=== PATIENT | male | born 1935 | race Hispanic/Latino ===

== ENCOUNTER 2016-11-08 00:37 | Emergency (ER) | payer BC, MEDICARE ==
[2016-11-08 00:39] VITALS: BMI 30.7
[2016-11-08 00:43] VITALS: TEMP 98.3
--- NOTE | 2016-11-08 01:25 | ED PDOC ---
Arrival/HPI - General Historian: Patient <Fozia Rincon - Last Filed: 11/08/16 03:49> <Darrick Chávez - Last Filed: 11/08/16 06:57> - General Chief Complaint: Dizziness/Lightheaded Time Seen by Provider: 11/08/16 00:44 - History of Present Illness Narrative History of Present Illness (Text): 11/08/16 01:15 81 M with PMHx of HTN, CAD with 2 stents, Hypercholesterolemia presented to [facility] ED with complaints of dizziness. Pt states that he had a massage by a chiropractor yesterday evening that was rather harsh that left him with a stiff neck. Pt noted slight dizziness this morning, slight headache and noted seeing floaters, took his BP which was 170s/80s however went to 128/72 after taking his anti-htn medications. Pt noted that he has stomach ache today also that began in the morning that kept him from eating much throughout the day. Pt was seen and examined at bedside. He continues to feel dizziness only upon change in position, however denies any other complaints at this time. Denies any focal deficits or speech changes. He denied fever, chills, sob, cough, chest pains, palpitations, abdominal pains, n/v/d/c or urinary symptoms. PMHx: As above PSHx: denies SHx: Lives in [place] with , denied tobacco, etoh, or drug abuse Allergies: Plavix Meds: As per OCT PMD: Dr. Rosales Cyberathlete: Dr. Escalera (Fozia Rincon) Past Medical History - Infectious Disease Hx of Infectious Diseases: None - Tetanus Immunization Tetanus Immunization: Unknown - Cardiac Hx Hypertension: Yes Hx Pacemaker: No - Neurological Hx Paralysis: No - Hematological/Oncological Hx Blood Transfusions: No Hx Blood Transfusion Reaction: No - Musculoskeletal/Rheumatological Hx Musculoskeletal Disorders: No - Gastrointestinal Hx Gastroesophageal Reflux: Yes - Psychiatric Hx Depression: No Hx Emotional Abuse: No Hx Physical Abuse: No Hx Substance Use: No - Surgical History Hx Cardiac Catheterization: Yes (1 stent) - Anesthesia Hx Anesthesia: Yes Hx Anesthesia Reactions: Yes (DIFFICULT INTUBATION) Hx Malignant Hyperthermia: No - Suicidal Assessment Feels Threatened In Home Enviroment: No <Fozia Rincon - Last Filed: 11/08/16 03:49> Family/Social History Family/Social History: No Known Family HX Smoking Status: Unknown If Ever Smoked Hx Alcohol Use: No Hx Substance Use: No Hx Substance Use Treatment: No <Fozia Rincon - Last Filed: 11/08/16 03:49> Family/Social History: Unknown Family HX <Jack Chávezo Karol - Last Filed: 11/08/16 06:57> Allergies/Home Meds <Fozia Rincon - Last Filed: 11/08/16 03:49> <Jack Chávezo Karol - Last Filed: 11/08/16 06:57> Allergies/Adverse Reactions: Allergies clopidogrel bisulfate [From Plavix] Allergy (Verified 11/08/16 00:40) REDNESS Home Medications: Home Meds Medication Instructions Recorded Confirmed Amlodipine Besylate 5 mg PO DAILY 07/23/12 11/08/16 Aspirin 81 mg PO DAILY 07/23/12 11/08/16 Lisinopril 20 mg PO DAILY 07/23/12 11/08/16 Metoprolol Tartrate 50 mg PO BID 07/23/12 11/08/16 Rosuvastatin Calcium [Crestor] 10 mg PO DAILY 07/23/12 11/08/16 Alprazolam [Xanax] 0.5 mg PO DAILY 10/28/13 11/08/16 Esomeprazole Magnesium [Nexium] 40 mg PO DAILY 10/28/13 11/08/16 Review of Systems - Physician Review All systems were reviewed & negative as marked: Yes - Review of Systems Neurological: Dizziness <Fozia Rincon - Last Filed: 11/08/16 03:49> - Physician Review All systems were reviewed & negative as marked: Yes <Jack Chávezo Karol - Last Filed: 11/08/16 06:57> Physical Exam Temperature: Afebrile Blood Pressure: Hypertensive Pulse: Regular Respiratory Rate: Normal Appearance: Positive for: Well-Appearing, Non-Toxic, Comfortable Pain Distress: None Mental Status: Positive for: Alert and Oriented X 3 - Systems Exam Head: Present: Atraumatic, Normocephalic Pupils: Present: PERRL Extroacular Muscles: Present: EOMI Conjunctiva: Present: Normal Mouth: Present: Dry Pharnyx: Present: Normal. No: ERYTHEMA Neck: Present: Normal Range of Motion Respiratory/Chest: Present: Clear to Auscultation, Good Air Exchange. No: Respiratory Distress, Accessory Muscle Use Cardiovascular: Present: Regular Rate and Rhythm, Normal S1, S2. No: Murmurs Abdomen: Present: Normal Bowel Sounds. No: Tenderness, Distention, Peritoneal Signs Upper Extremity: Present: Normal Inspection. No: Cyanosis, Edema Lower Extremity: Present: Normal Inspection. No: Edema Neurological: Present: GCS=15, CN II-XII Intact, Speech Normal Skin: Present: Warm, Dry, Normal Color. No: Rashes Psychiatric: Present: Alert, Oriented x 3, Normal Insight, Normal Concentration <Fozia Rincon - Last Filed: 11/08/16 03:49> Vital Signs Temp Pulse Resp BP Pulse Ox 11/08/16 05:18 90 16 160/76 H 96 11/08/16 00:41 98.3 F 85 14 180/87 H 98 Medical Decision Making - EKG Interpretation Comparison: Similar to previous EKG <Fozia Rincon - Last Filed: 11/08/16 03:49> - RAD Interpretation University Teacher: Radiologist - EKG Interpretation Interpreted by ED Physician: Yes Type: 12 lead EKG <Darrick Chávez - Last Filed: 11/08/16 06:57> ED Course and Treatment: 11/08/16 01:27 81 M with PMHx of HTN, CAD s/p 2 stents, HLD presented to [facility] ED with complaints of dizziness and mild headache likely benign positional vertigo. - CTH to r/o acute intracranial path - EKG - CBC/CMP - Orthostatics - Meclizine for dizziness - Monitor BP 11/08/16 01:46 (Fozia Rincon) 11/08/16 04:26 In agreement with resident note, which includes further HPI details. Patient was seen and evaluated with resident, came up with plan and treatment together. Impression: 81 year old male complaining of dizziness s/p chiropractic work on neck. Neuro exam normal. Dizziness reproduced when sitting and turning head to right. Rule out benign positional vertigo; less likely TIA/CVA. Plan: --CT Head --EKG --Labs --Meclizine, Maalox, IVF -- Reassess and disposition Prior Visits: Notes and results from previous visits were reviewed. Progress Notes: On reevaluation, prior to discharge and after tx with Meclizine patient felt much better. He is no longer having dizziness. He stands up and doesn't feel dizzy and is able to walk to the bathroom without ataxia. Neuro exam normal. No weakness or numbness (KobedaveyDarrick L) - Lab Interpretations Lab Results: 11/08/16 01:40 11/08/16 01:40 Lab Results 11/08/16 01:40: WBC 11.4 H, RBC 4.84, Hgb 14.6, Hct 43.7, MCV 90.3, MCH 30.2, MCHC 33.4, RDW 13.1, Plt Count 222, MPV 11.3 H, Gran % 55.0, Lymph % (Auto) 34.5 , [place] % (Auto) 9.1 H, Eos % (Auto) 1.2 L, Baso % (Auto) 0.2, Gran # 6.28, Lymph # 3.9 H, [place] # 1.0 H, Eos # 0.1, Baso # 0.02, Sodium 139, Potassium 4.6, Chloride 101, Carbon Dioxide 31, Anion Gap 12, BUN 12, Creatinine 0.8, Est GFR ( Amer) > 60, Est GFR (Non-Af Amer) > 60, Random Glucose 110, Calcium 9.1 , Total Bilirubin 0.6, AST 28, ALT 29, Alkaline Phosphatase 54, Total Protein 7.1, Albumin 3.9, Globulin 3.2, Albumin/Globulin Ratio 1.2 - RAD Interpretation Narrative RAD Interpretations (Text): 11/08/16 05:50 EXAM: CT Head With Intravenous Contrast Dictated and Authenticated by: Kalen Haywood MD FINDINGS: Brain: Mild atrophy. No intracranial hemorrhage. No mass. Chronic lacunar infarct RIGHT thalamus. Few scattered foci of decreased attenuation within periventricular/ subcortical white matter. No definite edema. Ventricles: No hydrocephalus. Bones/joints: No acute fracture. Soft tissues: Unremarkable. Vasculature: Atherosclerotic disease of intracranial arteries. Sinuses: RIGHT maxillary retention cyst. Scattered minimal mucosal thickening. Mastoid air cells: Postsurgical changes of RIGHT mastoid with minimal partial opacification. Orbits: Unremarkable as visualized. IMPRESSION: 1. Nonspecific white matter changes. Acute infarction may be CT occult within first 24 hours. If a focal deficit persists, consider followup CT or MRI for further evaluation. 2. Incidental/non-acute findings are described above. (Darrick Chávez) Radiology Orders: 11/08/16 01:08 HEAD W/CONTRAST [CT] Stat - EKG Interpretation EKG Interpretation (Text): 11/08/16 02:21 EKG: Ordered, reviewed, and independently interpreted the EKG. Rate : 86 BPM Rhythm : NSR Interpretation : 1 AVB; incomplete RBBB Comparison : No change from previous on 10/28/16 (Darrick Chávez) - Medication Orders Current Medication Orders: Discontinued Medications Al Hydrox/Mg Hydrox/Simethicone (Maalox Plus 30 Ml) 30 ml PO ONCE ONE Stop: 11/08/16 04:23 Last Admin: 11/08/16 04:38 Dose: 30 ML Sodium Chloride (Sodium Chloride 0.9%) 500 mls @ 999 mls/hr IV .Q31M STA Stop: 11/08/16 02:54 Last Admin: 11/08/16 03:36 Dose: 999 MLS/HR eMAR Start Stop Document 11/08/16 03:36 GMI (Rec: 11/08/16 03:36 [id number] Intravenous Solution Start Date 11/08/16 Start Time 03:36 Meclizine HCl (Antivert) 25 mg PO STAT STA Stop: 11/08/16 02:25 Last Admin: 11/08/16 03:36 Dose: 25 MG NIHSS Scale ([place]) Time Performed: 02:20 - How Severe is the Stoke Baseline Level of Consciousness: 0=Alert LOC to Questions: 0=Both comments correct LOC to commands: 0=Obeys both correctly Best Gaze: 0=Normal Visual: 0=No visual loss Facial: 0=Normal Motor Arm - Left: 0=No drift Motor Arm - Right: 0=No drift Motor Leg - Left: 0=No drift Motor Leg - Right: 0=No drift Limb Ataxia: 0=Absent Sensory: 0=Normal Best Language: 0=No aphasia Dysarthia: 0=Normal articulation Extinction & Inattention (Neglect): 0=Normal, no object Score: 0 Risk Level: No Stroke Risk <Darrick Chávez - Last Filed: 11/08/16 06:57> <Sergey,Manit - Last Filed: 11/08/16 03:49> - Scribe Statement The provider has reviewed the documentation as recorded by the Scribe <Darrick Chávez - Last Filed: 11/08/16 06:57> - Scribe Statement Mary Schmidt Provider Scribe Attestation: All medical record entries made by the Scribe were at my direction and personally dictated by me. I have reviewed the chart and agree that the record accurately reflects my personal performance of the history, physical exam, medical decision making, and the department course for this patient. I have also personally directed, reviewed, and agree with the discharge instructions and disposition. (Darrick Chávez) Disposition/Present on Arrival - Present on Arrival Any Indicators Present on Arrival: No History of DVT/PE: No History of Uncontrolled Diabetes: No Urinary Catheter: No History of Decub. Ulcer: No History Surgical Site Infection Following: None - Disposition Have Diagnosis and Disposition been Completed?: Yes Disposition Time: 01:00 <Fozia Rincon - Last Filed: 11/08/16 03:49> - Present on Arrival Any Indicators Present on Arrival: No - Disposition Have Diagnosis and Disposition been Completed?: Yes Disposition Time: 05:32 Patient Plan: Discharge <Darrick Chávez - Last Filed: 11/08/16 06:57> - Disposition Diagnosis: Benign positional vertigo Disposition: HOME/ ROUTINE Condition: IMPROVED Discharge Instructions (ExitCare): Dizziness (ED) Additional Instructions: Mr. Patrick, thank you for letting us take care of you today. Your provider was Dr. Chávez. You were treated for Dizziness. The emergency medical care you received today was directed at your acute symptoms. If you were prescribed any medication, please fill it and take as directed. It may take several days for your symptoms to resolve. Return to the Emergency Department if your symptoms worsen, do not improve, or if you have any other problems. Please contact your doctor or call one of the physicians/clinics you have been referred to that are listed on the Patient Visit Information form that is included in your discharge packet. Bring any paperwork you were given at discharge with you along with any medications you are taking to your follow up visit. Our treatment cannot replace ongoing medical care by a primary care provider (PCP) outside of the emergency department. Thank you for allowing the [facility] team to be part of your care today. If you had an X-Ray or CT scan: A Radiologist will review the ED reading if any change in treatment is needed we will contact you. If you had a blood, urine, or wound culture: It will take several days for the results, if any change in treatment is needed we will contact you. If you had an STI test: It will take 48 hours for the results. Please call after 1 week if you have not heard back. Prescriptions: Meclizine [Meclizine*] 25 mg PO Q6 PRN #30 tab PRN Reason: Dizziness Referrals: Kelsea Walker MD [Primary Care Provider] - Follow up with primary Forms: WORK NOTE
--- NOTE | 2016-11-08 01:36 | CT ---
EXAM: CT Head With Intravenous Contrast. CLINICAL HISTORY: 81 years old, male; Signs and symptoms; Dizziness; Additional info: R/O stroke, study done w/o contrast. TECHNIQUE: Axial computed tomography images of the head/brain with intravenous contrast. This CT exam was performed using one or more of the following dose reduction techniques: automated exposure control, adjustment of the mA and/or kV according to patient size, and/or use of iterative reconstruction technique. CONTRAST: 0 mL of w/o administered intravenously. COMPARISON: No relevant prior studies available. FINDINGS: Brain: Mild atrophy. No intracranial hemorrhage. No mass. Chronic lacunar infarct RIGHT thalamus. Few scattered foci of decreased attenuation within periventricular/subcortical white matter. No definite edema. Ventricles: No hydrocephalus. Bones/joints: No acute fracture. Soft tissues: Unremarkable. Vasculature: Atherosclerotic disease of intracranial arteries. Sinuses: RIGHT maxillary retention cyst. Scattered minimal mucosal thickening. Mastoid air cells: Postsurgical changes of RIGHT mastoid with minimal partial opacification. Orbits: Unremarkable as visualized. IMPRESSION: 1. Nonspecific white matter changes. Acute infarction may be CT occult within first 24 hours. If a focal deficit persists, consider followup CT or MRI for further evaluation. 2. Incidental/non-acute findings are described above.
[2016-11-08 01:48] LABS: ADD MANUAL DIFF? NO
[2016-11-08 02:16] LABS: BASO # 0.02 K/mm3 (0.0-2.0); BASO % 0.2 % (0.0-3.0); EOS # 0.1 (0.0-0.7); EOS % 1.2 % (1.5-5.0); GRAN # 6.28 (1.4-6.5); HEMATOCRIT 43.7 % (42.0-52.0); LYMPH # 3.9 (1.2-3.4); LYMPH % 34.5 % (22.0-35.0); MEAN CELL VOLUME 90.3 fL (80.0-105.0); MEAN CORPUSCULAR HEMOGLOBIN 30.2 pg (25.0-35.0); MEAN CORPUSCULAR HGB CONC 33.4 g/dl (31.0-37.0); MEAN PLATELET VOLUME 11.3 fl (7.0-11.0); MONO % 9.1 % (1.0-6.0); PLATELET COUNT 222 10^3/uL (120.0-450.0); RED CELL DISTRIBUTION WIDTH 13.1 % (11.5-14.5); WHITE BLOOD COUNT 11.4 10^3/ul (4.5-11.0)
[2016-11-08] MEDS ORDERED: Sodium Chloride 0.9% 500 ML IV STA (02:24)
[2016-11-08] MEDS ORDERED: Alum-Mag Hydrox-Simethicone Susp (30 mL) PO ONE (04:22)
[2016-11-08 04:51] LABS: ALB/GLOB RATIO 1.2 (1.1-1.8); ALKALINE PHOSPHATASE 54 U/L (38-133); ALT/SGPT 29 U/L (7-56); AST/SGOT 28 U/L (15-59); BILIRUBIN,TOTAL 0.6 mg/dL (0.2-1.3); BLOOD UREA NITROGEN 12 mg/dL (7-21); CALCIUM 9.1 mg/dL (8.4-10.5); CARBON DIOXIDE 31 mmol/L (21-33); CHLORIDE 101 mmol/L (95-110); GFR AFRICAN-AMERICAN > 60; GLUCOSE,RANDOM 110 mg/dL (70-110); POTASSIUM 4.6 mmol/L (3.6-5.0); SODIUM 139 mmol/L (132-148); TOTAL PROTEIN 7.1 g/dL (5.8-8.3)
[2016-11-08 05:19] VITALS: BP 160/76; PULSE 90; RESP 16; O2SAT 96
--- NOTE | 2016-11-08 10:13 | CARD ---
APPROVED REPORT EKG Measurement Heart [id number] <Conclusion> Sinus rhythm with 1st degree AV block Possible Left atrial enlargement Incomplete right bundle branch block Nonspecific ST and T wave abnormality Prolonged QT
== END 2016-11-08 05:32 | disposition home or self-care (01) ==
LOC: ED 00:37
DX: H81.10 Benign paroxysmal vertigo, unspecified ear (principal); I10 Essential (primary) hypertension; E78.00 Pure hypercholesterolemia, unspecified; I25.10 Atherosclerotic heart disease of native coronary artery without angina pectoris; Z95.5 Presence of coronary angioplasty implant and graft
CPT/HCPCS: 70460; 80053; 85025; 93005; 99285; J7040

== ENCOUNTER 2017-12-07 04:04 | Emergency (ER) | payer BC, MEDICARE ==
[2017-12-07 04:08] VITALS: BMI 30.9
--- NOTE | 2017-12-07 04:31 | ED PDOC ---
Arrival/HPI - General Chief Complaint: Chest Pain Time Seen by Provider: 12/07/17 04:16 Historian: Patient - History of Present Illness Narrative History of Present Illness (Text): you were treated in the ED today for hx of CAD with stents, and have had intermittent left sided chest pain and otherwise without any nausea/vomiting/ headache/dizziness/difficulty breathing/abdomen pain/numbness/tingling/loss of limb function/pain with urination/recent travel/prior blood clots/prior cancer. 12/07/17 04:27 Time/Duration: Other (3 days) Symptom Onset: Gradual Symptom Course: Intermittent Quality: Aching, Stabbing Activities at Onset: Rest Context: Sitting Past Medical History - Provider Review Nursing Documentation Reviewed: Yes - Travel History Have you recently traveled outside [place] w/in the past 3 mons?: No - Infectious Disease Hx of Infectious Diseases: None - Tetanus Immunization Tetanus Immunization: Unknown - Cardiac Hx Hypertension: Yes Hx Pacemaker: No - Neurological Hx Paralysis: No - HEENT Hx HEENT Disorder: No - Renal Hx Renal Disorder: No - Endocrine/Metabolic Hx Endocrine Disorders: No - Hematological/Oncological Hx Blood Transfusions: No Hx Blood Transfusion Reaction: No - Musculoskeletal/Rheumatological Hx Musculoskeletal Disorders: No - Gastrointestinal Hx Gastroesophageal Reflux: Yes - Psychiatric Hx Depression: No Hx Emotional Abuse: No Hx Physical Abuse: No Hx Substance Use: No - Surgical History Hx Cardiac Catheterization: Yes (1 stent) - Anesthesia Hx Anesthesia: Yes Hx Anesthesia Reactions: Yes (DIFFICULT INTUBATION) Hx Malignant Hyperthermia: No - Suicidal Assessment Feels Threatened In Home Enviroment: No Family/Social History - Physician Review Nursing Documentation Reviewed: Yes Family/Social History: No Known Family HX Smoking Status: Unknown If Ever Smoked Hx Alcohol Use: No Hx Substance Use: No Hx Substance Use Treatment: No Allergies/Home Meds Allergies/Adverse Reactions: Allergies clopidogrel bisulfate [From Plavix] Allergy (Verified 12/07/17 04:08) REDNESS Home Medications: Home Meds Medication Instructions Recorded Confirmed Amlodipine Besylate 5 mg PO DAILY 07/23/12 12/07/17 Aspirin 81 mg PO DAILY 07/23/12 12/07/17 Lisinopril 20 mg PO DAILY 07/23/12 12/07/17 Metoprolol Tartrate 50 mg PO BID 07/23/12 12/07/17 Rosuvastatin Calcium [Crestor] 10 mg PO DAILY 07/23/12 12/07/17 Alprazolam [Xanax] 0.5 mg PO DAILY 10/28/13 12/07/17 Esomeprazole Magnesium [Nexium] 40 mg PO DAILY 10/28/13 12/07/17 Review of Systems - Review of Systems Constitutional: Normal Eyes: Normal ENT: Normal Respiratory: Normal Cardiovascular: Chest Pain Gastrointestinal: Normal Genitourinary Male: Normal Musculoskeletal: Normal Skin: Normal Neurological: Normal Endocrine: Normal Hemo/Lymphatic: Normal Psychiatric: Normal Physical Exam Vital Signs Reviewed: Yes Vital Signs Temp Pulse Resp BP Pulse Ox 12/07/17 07:30 98 F 80 18 162/77 H 96 12/07/17 06:52 77 18 140/68 96 12/07/17 05:12 67 18 147/74 95 12/07/17 04:05 98.7 F 80 16 173/77 H 96 Temperature: Afebrile Blood Pressure: Hypertensive Pulse: Regular Respiratory Rate: Normal Appearance: Positive for: Well-Appearing, Non-Toxic, Comfortable Pain Distress: None Mental Status: Positive for: Alert and Oriented X 3 - Systems Exam Head: Present: Atraumatic, Normocephalic Pupils: Present: PERRL Extroacular Muscles: Present: EOMI Conjunctiva: Present: Normal Ears: Present: Normal Mouth: Present: Moist Mucous Membranes Pharnyx: Present: Normal Nose (External): Present: Atraumatic Medical Decision Making ED Course and Treatment: you were treated in the ED today for hx of CAD with stents, and have had intermittent left sided chest pain and otherwise without any nausea/vomiting/ headache/dizziness/difficulty breathing/abdomen pain/numbness/tingling/loss of limb function/pain with urination/recent travel/prior blood clots/prior cancer. You were otherwise breathing easily, pink moist lips, talking easily, good strength/sensation, alert/oriented, walking easily, clear lungs, no abdomen tenderness, no fever temp 98.7, stable heart rate 80, stable breathing rate 16, excellent oxygen level 96% room air, elevated blood pressure 173/77 which we recommend repeat in 2-3 days primary care office to determine further treatment , you have blood tests no infection count 9, stable blood level hemoglobin 14/ platelets 218, stable chemistry, negative heart blood test, chest xray radiology widened mediastinum, ECG sinus rhythm, aspirin, mlanta, observation done in the ED with improvement. signed out to Dr. Syed to fu CTa and disposition. Reassessment Condition: Re-examined, Improved - Lab Interpretations Lab Results: 12/07/17 04:20 12/07/17 04:20 Lab Results 12/07/17 06:27: Urine Color Yellow, Urine Appearance Clear, Urine pH 7.0, Ur Specific [place] <= 1.005, Urine Protein Negative, Urine Glucose (UA) Negative, Urine Ketones Negative, Urine Blood Negative, Urine Nitrate Negative, Urine Bilirubin Negative, Urine Urobilinogen 0.2, Ur Leukocyte Esterase Negative 12/07/17 04:20: Sodium 141, Potassium 4.2, Chloride 99, Carbon Dioxide 30, Anion Gap 16, BUN 17, Creatinine 0.9, Est GFR ( Amer) > 60, Est GFR (Non- Af Amer) > 60, Random Glucose 110, Calcium 9.2, Magnesium 1.9, Total Bilirubin 0.3, AST 29, ALT 28, Alkaline Phosphatase 66, Lactate Dehydrogenase 370, Total Creatine Kinase 45, Troponin I < 0.01, Total Protein 7.3, Albumin 4.3, Globulin 3.0, Albumin/Globulin Ratio 1.4 12/07/17 04:20: PT 11.3, INR 0.98, APTT 29.2 12/07/17 04:20: WBC 9.8, RBC 4.69, Hgb 14.2, Hct 42.5, MCV 90.6, MCH 30.3, MCHC 33.4, RDW 13.2, Plt Count 218, MPV 10.9, Gran % 50.1, Lymph % (Auto) 39.7 H, [place] % (Auto) 7.7 H, Eos % (Auto) 2.3, Baso % (Auto) 0.2, Gran # 4.89, Lymph # ( Auto) 3.9 H, [place] # (Auto) 0.8 H, Eos # (Auto) 0.2, Baso # (Auto) 0.02 I have reviewed the lab results: Yes - RAD Interpretation Narrative RAD Interpretations (Text): 12/07/17 05:29 CXR reviewed by radiologist, shows: Limitations: Radiographic technique - mild. Lungs: No consolidation. Pleural space: No definite pleural effusion. No pneumothorax. Heart: Borderline cardiomegaly. Mediastinum: Apparent widened mediastinum. Apparent mild prominence of central pulmonary vasculature. Bones/joints: Chronic deformity of rib cage. No acute fracture. Tubes, lines and devices: Leads overlying chest. IMPRESSION: 1. Apparent widening mediastinum. Recommend CT. 2. Possible early pulmonary vascular congestion. Clinical correlation is needed. 3. Incidental/non-acute findings are described above. Radiology Orders: 12/07/17 04:26 CHEST PORTABLE [RAD] Stat 12/07/17 05:28 ANGIO CHEST PE PROTOCOL [CT] Stat Thermal Technician: Radiologist - EKG Interpretation Interpreted by ED Physician: Yes (SR, flipped t waves avr, avl, v1, ) Type: 12 lead EKG Comparison: Similar to previous EKG (11/08/16) - Medication Orders Current Medication Orders: Discontinued Medications Al Hydrox/Mg Hydrox/Simethicone (Maalox Plus 30 Ml) 30 ml PO STAT STA Stop: 12/07/17 05:24 Last Admin: 12/07/17 05:37 Dose: 30 ml Aspirin (Aspirin) 325 mg PO STAT STA Stop: 12/07/17 04:26 Last Admin: 12/07/17 04:29 Dose: 325 mg Sodium Chloride (Sodium Chloride 0.9%) 1,000 mls @ 100 mls/hr IV .Q10H NASRIN Last Admin: 12/07/17 05:37 Dose: 100 mls/hr eMAR Start Stop Document 12/07/17 05:37 RD (Rec: 12/07/17 05:37 RD [id number]) Intravenous Solution Start Date 12/07/17 Start Time 05:37 End Date 12/07/17 End time 07:45 Total Infusion Time 128 Disposition/Present on Arrival - Present on Arrival Any Indicators Present on Arrival: No History of DVT/PE: No History of Uncontrolled Diabetes: No Urinary Catheter: No History of Decub. Ulcer: No History Surgical Site Infection Following: None - Disposition Have Diagnosis and Disposition been Completed?: Yes Diagnosis: Chest pain, Left against medical advice Disposition: AGAINST MEDICAL ADVICE Disposition Time: 18:05 Patient Plan: Discharge Condition: STABLE Discharge Instructions (ExitCare): Leaving Against Medical Advice, Chest Pain ( ED) Additional Instructions: return to er with worsening symptoms or concerns. please follow up with your doctor/parcel post clerk. you are able to return to any er with any concern. Referrals: Kelsea Walker MD [Primary Care Provider] - Follow up with primary Forms: ModusP (German)
[2017-12-07 04:51] LABS: BASO # 0.02 K/mm3 (0.0-2.0); BASO % 0.2 % (0.0-3.0); EOS # 0.2 (0.0-0.7); EOS % 2.3 % (1.5-5.0); GRAN # 4.89 (1.4-6.5); GRAN % 50.1 % (50.0-68.0); HEMOGLOBIN 14.2 g/dL (14.0-18.0); LYMPH # 3.9 (1.2-3.4); LYMPH % 39.7 % (22.0-35.0); MEAN CELL VOLUME 90.6 fl (80.0-105.0); MEAN CORPUSCULAR HEMOGLOBIN 30.3 pg (25.0-35.0); MEAN CORPUSCULAR HGB CONC 33.4 g/dl (31.0-37.0); MEAN PLATELET VOLUME 10.9 fl (7.0-11.0); MONO # 0.8 (0.1-0.6); MONO % 7.7 % (1.0-6.0); RBC 4.69 10^6/uL (3.5-6.1); RED CELL DISTRIBUTION WIDTH 13.2 % (11.5-14.5); WHITE BLOOD COUNT 9.8 10^3/ul (4.5-11.0)
[2017-12-07 04:54] LABS: ALB/GLOB RATIO 1.4 (1.1-1.8); ALBUMIN 4.3 g/dL (3.0-4.8); ALT/SGPT 28 U/L (7-56); AST/SGOT 29 U/L (17-59); BLOOD UREA NITROGEN 17 mg/dL (7-21); CALCIUM 9.2 mg/dL (8.4-10.5); GFR AFRICAN-AMERICAN > 60; GFR NON-AFRICAN AMERICAN > 60
[2017-12-07 05:05] LABS: TROPONIN I < 0.01 ng/mL
[2017-12-07 05:06] LABS: PROTHROMBIN TIME 11.3 SECONDS (9.4-12.5)
[2017-12-07 05:07] LABS: INR 0.98 (0.93-1.08); PARTIAL THROMBOPLASTIN TIME 29.2 Seconds (25.1-36.5)
[2017-12-07 05:13] VITALS: RESP 18
[2017-12-07] MEDS ORDERED: Alum-Mag Hydrox-Simethicone Susp (30 mL) PO STA (05:23)
--- NOTE | 2017-12-07 05:25 | RAD ---
EXAM: XR Chest, 1 View CLINICAL HISTORY: 82 years old, male; Pain; Chest pain; Additional info: 82yom, chest pain TECHNIQUE: Frontal view of the chest. COMPARISON: No relevant prior studies available. FINDINGS: Limitations: Radiographic technique - mild. Lungs: No consolidation. Pleural space: No definite pleural effusion. No pneumothorax. Heart: Borderline cardiomegaly. Mediastinum: Apparent widened mediastinum. Apparent mild prominence of central pulmonary vasculature. Bones/joints: Chronic deformity of rib cage. No acute fracture. Tubes, lines and devices: Leads overlying chest. IMPRESSION: 1. Apparent widening mediastinum. Recommend CT. 2. Possible early pulmonary vascular congestion. Clinical correlation is needed. 3. Incidental/non-acute findings are described above.
[2017-12-07] MEDS ORDERED: Sodium Chloride 0.9% 1,000 ML IV SCH (05:30)
[2017-12-07] MEDS ORDERED: Iodixanol 320 MG/ML 100 ML BOTTLE IV ONE (05:31)
[2017-12-07 06:36] LABS: URINE BILIRUBIN NEGATIVE (NEGATIVE); URINE BLOOD NEGATIVE (NEGATIVE); URINE GLUCOSE (UA) NEGATIVE (NEGATIVE); URINE LEUKOCYTE ESTERASE NEGATIVE Leu/uL (NEGATIVE); URINE PROTEIN NEGATIVE mg/dL (<30 mg/dL); URINE UROBILINOGEN 0.2 E.U./dL (<1 E.U./dL)
[2017-12-07 06:37] LABS: URINE APPEARANCE CLEAR (CLEAR); URINE COLOR YELLOW (YELLOW)
[2017-12-07 06:52] VITALS: O2SAT 96
--- NOTE | 2017-12-07 07:18 | ED PDOC ---
Physical Exam Vital Signs Temp Pulse Resp BP Pulse Ox 12/07/17 06:52 77 18 140/68 96 12/07/17 05:12 67 18 147/74 95 12/07/17 04:05 98.7 F 80 16 173/77 H 96 Medical Decision Making ED Course and Treatment: 12/07/17 07:00 Case signed out to me by Dr. Lambert. Patient is an 82 year old male whose PMH includes CAD with stents, who came in complaining of intermittent left sided chest pain. Currently pending CT chest. 12/07/17 07:25 CT Chest: FINDINGS: Pulmonary arteries: Unremarkable. No pulmonary embolism. Aorta: The aorta demonstrates moderate atherosclerotic calcification. No thoracic aortic aneurysm. Lungs: Streaky bibasilar opacities secondary to atelectasis or infiltrate. Pleural space: Unremarkable. No significant effusion. No pneumothorax. Heart: Coronary artery calcification. No significant pericardial effusion. No evidence of RV dysfunction. Bones/joints: No acute fracture. No dislocation. 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 Soft tissues: Unremarkable. Lymph nodes: Unremarkable. No enlarged lymph nodes. Kidneys and ureters: There is a simple cyst in the right kidney. IMPRESSION: No evidence of pulmonary embolism. Streaky bibasilar opacities secondary to atelectasis or infiltrate. 12/07/17 07:35 Leaving Against Medical Advice (AMA): The patient is choosing to leave against medical advice. I have personally explained to the patient that choosing to do so may result in permanent bodily harm or . I have discussed at great length that without further evaluation and monitoring there may be unforeseen circumstances and/or deterioration causing permanent bodily harm or as a result of their choice. The patient is alert, oriented, and shows the mental capacity to make clear decisions regarding the patients health care at this time. The patient continues to wish to leave against medical advice. In light of the patients decision to leave against medical advice, follow-up has been arranged and the patient is aware of the importance to following up as instructed. The patient has been advised that they should return to the emergency room immediately if they change their mind at any time, or if their condition begins to change or worsen in any way. 12/07/17 10:06 pt whth left sided cp. h/o of cad s/p stents, pt refuses admission. states will return with worsening. - Lab Interpretations Lab Results: 12/07/17 04:20 12/07/17 04:20 Lab Results 12/07/17 06:27: Urine Color Yellow, Urine Appearance Clear, Urine pH 7.0, Ur Specific [place] <= 1.005, Urine Protein Negative, Urine Glucose (UA) Negative, Urine Ketones Negative, Urine Blood Negative, Urine Nitrate Negative, Urine Bilirubin Negative, Urine Urobilinogen 0.2, Ur Leukocyte Esterase Negative 12/07/17 04:20: Sodium 141, Potassium 4.2, Chloride 99, Carbon Dioxide 30, Anion Gap 16, BUN 17, Creatinine 0.9, Est GFR ( Amer) > 60, Est GFR (Non- Af Amer) > 60, Random Glucose 110, Calcium 9.2, Magnesium 1.9, Total Bilirubin 0.3, AST 29, ALT 28, Alkaline Phosphatase 66, Lactate Dehydrogenase 370, Total Creatine Kinase 45, Troponin I < 0.01, Total Protein 7.3, Albumin 4.3, Globulin 3.0, Albumin/Globulin Ratio 1.4 12/07/17 04:20: PT 11.3, INR 0.98, APTT 29.2 12/07/17 04:20: WBC 9.8, RBC 4.69, Hgb 14.2, Hct 42.5, MCV 90.6, MCH 30.3, MCHC 33.4, RDW 13.2, Plt Count 218, MPV 10.9, Gran % 50.1, Lymph % (Auto) 39.7 H, [place] % (Auto) 7.7 H, Eos % (Auto) 2.3, Baso % (Auto) 0.2, Gran # 4.89, Lymph # ( Auto) 3.9 H, [place] # (Auto) 0.8 H, Eos # (Auto) 0.2, Baso # (Auto) 0.02 - RAD Interpretation Radiology Orders: 12/07/17 04:26 CHEST PORTABLE [RAD] Stat 12/07/17 05:28 ANGIO CHEST PE PROTOCOL [CT] Stat Colorer: Radiologist - Medication Orders Current Medication Orders: Sodium Chloride (Sodium Chloride 0.9%) 1,000 mls @ 100 mls/hr IV .Q10H NASRIN Last Admin: 12/07/17 05:37 Dose: 100 mls/hr eMAR Start Stop Document 12/07/17 05:37 RD (Rec: 12/07/17 05:37 RD [id number]) Intravenous Solution Start Date 12/07/17 Start Time 05:37 Discontinued Medications Al Hydrox/Mg Hydrox/Simethicone (Maalox Plus 30 Ml) 30 ml PO STAT STA Stop: 12/07/17 05:24 Last Admin: 12/07/17 05:37 Dose: 30 ml Aspirin (Aspirin) 325 mg PO STAT STA Stop: 12/07/17 04:26 Last Admin: 12/07/17 04:29 Dose: 325 mg - Scribe Statement The provider has reviewed the documentation as recorded by the Rubén Joe Provider Scribe Attestation: All medical record entries made by the Scribe were at my direction and personally dictated by me. I have reviewed the chart and agree that the record accurately reflects my personal performance of the history, physical exam, medical decision making, and the department course for this patient. I have also personally directed, reviewed, and agree with the discharge instructions and disposition. Disposition/Present on Arrival - Present on Arrival Any Indicators Present on Arrival: No History of DVT/PE: No History of Uncontrolled Diabetes: No Urinary Catheter: No History of Decub. Ulcer: No History Surgical Site Infection Following: None - Disposition Have Diagnosis and Disposition been Completed?: Yes Diagnosis: Chest pain, Left against medical advice Disposition: HOME/ ROUTINE Disposition Time: 07:00 Condition: STABLE Discharge Instructions (ExitCare): Leaving Against Medical Advice, Chest Pain ( ED) Additional Instructions: return to er with worsening symptoms or concerns. please follow up with your doctor/photo tech. you are able to return to any er with any concern. Referrals: Kelsea Walker MD [Primary Care Provider] - Follow up with primary Forms: [employer] (Guyanese)
--- NOTE | 2017-12-07 07:20 | CT ---
EXAM: CT Angiography Chest With Intravenous Contrast CLINICAL HISTORY: 82 years old, male; Pain; Chest pain; Additional info: 82yom, with widened mediastinum TECHNIQUE: Axial computed tomographic angiography images of the chest with intravenous contrast using pulmonary embolism protocol. All CT scans at this facility use one or more dose reduction techniques, viz.: automated exposure control; ma/kV adjustment per patient size (including targeted exams where dose is matched to indication; i.e. head); or iterative reconstruction technique. MIP reconstructed images were created and reviewed. Coronal and sagittal reformatted images were created and reviewed. CONTRAST: 96 mL of visi 320 administered intravenously. COMPARISON: DX - CHEST PORTABLE 2017-12-07 04:27 FINDINGS: Pulmonary arteries: Unremarkable. No pulmonary embolism. Aorta: The aorta demonstrates moderate atherosclerotic calcification. No thoracic aortic aneurysm. Lungs: Streaky bibasilar opacities secondary to atelectasis or infiltrate. Pleural space: Unremarkable. No significant effusion. No pneumothorax. Heart: Coronary artery calcification. No significant pericardial effusion. No evidence of RV dysfunction. Bones/joints: No acute fracture. No dislocation. 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 Soft tissues: Unremarkable. Lymph nodes: Unremarkable. No enlarged lymph nodes. Kidneys and ureters: There is a simple cyst in the right kidney. IMPRESSION: No evidence of pulmonary embolism. Streaky bibasilar opacities secondary to atelectasis or infiltrate.
[2017-12-07 08:08] VITALS: BP 162/77; PULSE 80; TEMP 98
--- NOTE | 2017-12-07 20:32 | CARD ---
APPROVED REPORT EKG Measurement Heart [id number] <Conclusion> Sinus rhythm with 1st degree AV block Incomplete right bundle branch block Nonspecific ST and T wave abnormality Prolonged QT Abnormal ECG
== END 2017-12-07 07:50 | disposition left against medical advice (07) ==
LOC: ED 04:04
DX: R07.9 Chest pain, unspecified (principal); I10 Essential (primary) hypertension; I25.10 Atherosclerotic heart disease of native coronary artery without angina pectoris
CPT/HCPCS: 71045; 71275; 80053; 81003; 82550; 83615; 83735; 84484; 85025; 85610; 85730; 87086; 93005; 96360; 96361; 99285; J7040; Q9967

== ENCOUNTER 2018-04-12 06:26 | Emergency (ER) | payer BC, MEDICARE ==
[2018-04-12 06:33] VITALS: BMI 29.9
[2018-04-12] MEDS ORDERED: Labetalol 5 mg/ml Inj 20ML IV STA (07:43)
[2018-04-12] MEDS ORDERED: Sodium Chloride 0.9% 1,000 ML IV STA (07:48)
--- NOTE | 2018-04-12 08:02 | ED PDOC ---
Arrival/HPI - History of Present Illness Time/Duration: < week Symptom Onset: Gradual Symptom Course: Intermittent Quality: Pressure Activities at Onset: Rest - General Chief Complaint: Abdominal Pain Time Seen by Provider: 04/12/18 07:07 - History of Present Illness Narrative History of Present Illness (Text): 04/12/18 07:49 Pt is an 82 year old male with PMHx HTN, CAD s/p stents who presents complaining of abdominal pain. Pt states that two days ago he went to his primary's office because he had been experiencing epigastric pressure and bloating and also noticed his blood pressure to be elevated. Pt was concerned this might be cardiac related due to his history, states EKG in office showed no acute findings and pt returned home. He has intermittent epigastric pain and bloating for two days, and has noticed his symptoms mostly resolved with Mylanta. He states that yesterday he was experiencing abdominal pain and and took his pressure which was in the 180s/100s, states he took Mylanta and the pain went away and his pressure also returned to normal (130s/80s-90s). He presented to ED this morning bc of worsening pain also stating that he has pain in both of his shoulders. The patient denies chest pain or any radiation to the back or jaw. His last BM was yesterday which was hard and dark, with no visible blood. Pt states he has not had an appetite and did not eat anything yesterday. He denies any nausea or vomiting. Pt denies dizziness, headache, fevers, fatigue, palpitations. Pt states that at present the pain has resolved. He has never smoked. (Galen Vinson) Past Medical History - Infectious Disease Hx of Infectious Diseases: None - Tetanus Immunization Tetanus Immunization: Unknown - Cardiac Hx Angina: No Hx Coronary Artery Disease: Yes (CAD s/p stents) Hx Hypertension: Yes Hx Pacemaker: No - Neurological Hx Paralysis: No - HEENT Hx HEENT Disorder: No - Renal Hx Renal Disorder: No - Endocrine/Metabolic Hx Endocrine Disorders: No - Hematological/Oncological Hx Blood Transfusions: No Hx Blood Transfusion Reaction: No - Musculoskeletal/Rheumatological Hx Musculoskeletal Disorders: No - Gastrointestinal Hx Gastroesophageal Reflux: Yes - Psychiatric Hx Depression: No Hx Emotional Abuse: No Hx Physical Abuse: No Hx Substance Use: No - Surgical History Hx Cardiac Catheterization: Yes (1 stent) - Anesthesia Hx Anesthesia: Yes Hx Anesthesia Reactions: Yes (DIFFICULT INTUBATION) Hx Malignant Hyperthermia: No - Suicidal Assessment Feels Threatened In Home Enviroment: No Family/Social History Family/Social History: [place] (+Father from [place] age 68) Smoking Status: Unknown If Ever Smoked Hx Alcohol Use: No Hx Substance Use: No Hx Substance Use Treatment: No Allergies/Home Meds Allergies/Adverse Reactions: Allergies clopidogrel bisulfate [From Plavix] Allergy (Verified 04/12/18 06:33) REDNESS Home Medications: Home Meds Medication Instructions Recorded Confirmed Amlodipine Besylate 5 mg PO DAILY 07/23/12 04/12/18 Aspirin 81 mg PO DAILY 07/23/12 04/12/18 Lisinopril 20 mg PO DAILY 07/23/12 04/12/18 Metoprolol Tartrate 50 mg PO BID 07/23/12 04/12/18 Rosuvastatin Calcium [Crestor] 10 mg PO DAILY 07/23/12 04/12/18 Alprazolam [Xanax] 0.5 mg PO DAILY 10/28/13 04/12/18 Esomeprazole Magnesium [Nexium] 40 mg PO DAILY 10/28/13 04/12/18 Review of Systems - Review of Systems Constitutional: Normal. absent: Fatigue, Fevers Eyes: Normal. absent: Vision Changes, Photophobia ENT: Normal. absent: Sore Throat, Rhinorrhea Respiratory: Normal. absent: SOB, Cough Cardiovascular: absent: Chest Pain, Palpitations Gastrointestinal: Abdominal Pain, Constipation, Appetite Changes (+decreased appetite past 24 hours). absent: Diarrhea, Nausea, Vomiting, Hematochezia, Hematemesis, Food Intolerance Genitourinary Male: Normal. absent: Dysuria, Frequency, Hematuria Musculoskeletal: Other (+b/l shoulder pain) Skin: Normal. absent: Rash, Pruritis Neurological: Normal. absent: Headache, Dizziness, Focal Weakness Physical Exam Temperature: Afebrile Blood Pressure: Hypertensive (+Labetolol not given 2/2 BP droppe) Pulse: Regular Respiratory Rate: Normal Appearance: Positive for: Well-Appearing, Non-Toxic Pain Distress: None Mental Status: Positive for: Alert and Oriented X 3. No: Confused, Agitated - Systems Exam Head: Present: Atraumatic, Normocephalic Pupils: Present: PERRL Extroacular Muscles: Present: EOMI Conjunctiva: Present: Normal. No: Injected, Icteric Mouth: Present: Dry, Normal Lips, Normal Tounge Nose (External): Present: Atraumatic. No: Abrasion, Contusion Neck: Present: Normal Range of Motion. No: JVD Respiratory/Chest: Present: Clear to Auscultation, Good Air Exchange. No: Respiratory Distress, Accessory Muscle Use, Wheezes, Rales, Rhonchi Cardiovascular: Present: Regular Rate and Rhythm, Normal S1, S2, Peripheal Pulses Present. No: Murmurs Abdomen: Present: Distention, Other (+hyperactive bowel sounds). No: Tenderness , Peritoneal Signs, Rebound, Guarding, Hernias Upper Extremity: Present: Normal Inspection, NORMAL PULSES. No: Cyanosis, Edema , Tenderness, Swelling Lower Extremity: Present: Normal Inspection, NORMAL PULSES. No: Edema, Cyanosis Neurological: Present: GCS=15, CN II-XII Intact, Speech Normal, Motor Func Grossly Intact, Normal Sensory Function Skin: Present: Warm, Dry, Normal Color. No: Rashes Psychiatric: Present: Alert, Oriented x 3 Vital Signs Temp Pulse Resp BP Pulse Ox 04/12/18 12:15 92 H 15 121/76 94 L 04/12/18 10:26 76 16 152/86 H 95 04/12/18 08:26 78 18 156/78 H 95 04/12/18 08:07 84 158/78 H 04/12/18 06:37 98.7 F 95 H 23 197/86 H 93 L Medical Decision Making - RAD Interpretation Collection Systems Technician: Radiologist - EKG Interpretation Interpreted by ED Physician: Yes Type: 12 lead EKG ED Course and Treatment: 04/12/18 08:24 1) Abdominal pain, rule out [place], dissection * CBC w/ dif, CMP, lipase, PT/PTT, D-dimer * EKG * CXR * CT angio chest/abd * GI cocktail (Maalox, , Lidocaine 2% viscous) * Continue to reassess clinically (Galen Vinson) - Lab Interpretations Narrative Lab Interpretation (Text): Cardiac enzymes negative x1 04/12/18 10:25 (Galen Vinson) Lab Results: 04/12/18 06:45 04/12/18 06:45 Lab Results 04/12/18 06:45: Sodium 137, Potassium 4.1, Chloride 97 L, Carbon Dioxide 30, Anion Gap 14, BUN 11, Creatinine 0.8, Est GFR ( Amer) > 60, Est GFR (Non- Af Amer) > 60, Random Glucose 107, Calcium 9.5, Total Bilirubin 0.7, AST 27, ALT 26, Alkaline Phosphatase 55, Lactate Dehydrogenase 398, Total Creatine Kinase 56, Troponin I < 0.01, Total Protein 7.4, Albumin 4.3, Globulin 3.2, Albumin/Globulin Ratio 1.4, Lipase 105 04/12/18 06:45: PT 11.5, INR 1.00, APTT 27.9, D-Dimer, Quantitative < 200 04/12/18 06:45: WBC 10.3, RBC 4.79, Hgb 14.2, Hct 41.8 L, MCV 87.3 D, MCH 29.6 , MCHC 34.0, RDW 12.7, Plt Count 208, MPV 10.8, Gran % 50.4, Lymph % (Auto) 39.1 H, [place] % (Auto) 8.9 H, Eos % (Auto) 1.3 L, Baso % (Auto) 0.3, Gran # 5.18 , Lymph # (Auto) 4.0 H, [place] # (Auto) 0.9 H, Eos # (Auto) 0.1, Baso # (Auto) 0.03 - RAD Interpretation Narrative RAD Interpretations (Text): 04/12/18 09:19 CXR - No evidence of acute disease CTA abd/pelvis - No acute pathology, no evidence of dissection (Galen Vinson) Radiology Orders: 04/12/18 07:38 CHEST PORTABLE [RAD] Stat 04/12/18 07:44 ANGIO CHEST/ABDOMEN/PELVIS [CT] Stat - EKG Interpretation EKG Interpretation (Text): 04/12/18 08:22 EKG - 1st degree AV block, prolonged QTc (QT 400/QTc 489) (Galen Vinson) - Medication Orders Current Medication Orders: Lidocaine HCl (Lidocaine 2% Viscous) 15 ml PO Q3H PRN PRN Reason: Pain, Mild (1-3) Last Admin: 04/12/18 11:32 Dose: 15 ml Discontinued Medications Al Hydrox/Mg Hydrox/Simethicone (Maalox Plus 30 Ml) 30 ml PO STAT STA Stop: 08/20/18 10:05 Last Admin: 04/12/18 11:32 Dose: 30 ml Belladonna/Phenobarbital ( Elixir) 5 ml PO STAT STA Stop: 04/12/18 10:05 Last Admin: 04/12/18 11:32 Dose: 5 ml Sodium Chloride (Sodium Chloride 0.9%) 1,000 mls @ 999 mls/hr IV .Q1H1M STA Stop: 04/12/18 08:48 Last Admin: 04/12/18 08:06 Dose: 999 mls/hr eMAR Start Stop Document 04/12/18 08:06 CLINICAL SCIENTIST (Rec: 04/12/18 08:06 [id number] Intravenous Solution Start Date 04/12/18 Start Time 08:06 End Date 04/12/18 End time 09:06 Total Infusion Time 60 Labetalol HCl (Trandate) 10 mg IV STAT STA Stop: 04/12/18 07:44 Last Admin: 04/12/18 08:07 Dose: Not Given Non-Admin Reason: BP Parameters Not Met eMAR Start Stop Document 04/12/18 08:07 CLINICAL SCIENTIST (Rec: 04/12/18 08:07 [facility]-[id number]) Intravenous Solution Start Date 04/12/18 Start Time 08:07 [facility] Pulse and Blood Pressure Document 04/12/18 08:07 [facility] (Rec: 04/12/18 08:07 [facility]-[id number]) Pulse Pulse Rate (60-90) 84 Blood Pressure Blood Pressure (100/60-150/90) 158/78 Disposition/Present on Arrival - Present on Arrival Any Indicators Present on Arrival: No History of DVT/PE: No History of Uncontrolled Diabetes: No Urinary Catheter: No History of Decub. Ulcer: No History Surgical Site Infection Following: None - Disposition Have Diagnosis and Disposition been Completed?: Yes Disposition Time: 12:32 - Disposition Diagnosis: Abdominal pain Disposition: HOME/ ROUTINE Condition: IMPROVED Discharge Instructions (ExitCare): Gastritis (DC) Prescriptions: Famotidine [Pepcid] 40 mg PO BID 6 Days #12 tab Referrals: FAMILY PROVIDER,NO [Primary Care Provider] - Follow up with primary Forms: [employer] (Romanian)
[2018-04-12 08:04] LABS: BASO # 0.03 K/mm3 (0.0-2.0); BASO % 0.3 % (0.0-3.0); EOS # 0.1 (0.0-0.7); EOS % 1.3 % (1.5-5.0); GRAN # 5.18 (1.4-6.5); GRAN % 50.4 % (50.0-68.0); HEMOGLOBIN 14.2 g/dL (14.0-18.0); LYMPH % 39.1 % (22.0-35.0); MEAN CELL VOLUME 87.3 fl (80.0-105.0); MEAN CORPUSCULAR HEMOGLOBIN 29.6 pg (25.0-35.0); MEAN PLATELET VOLUME 10.8 fl (7.0-11.0); MONO # 0.9 (0.1-0.6); MONO % 8.9 % (1.0-6.0); RBC 4.79 10^6/uL (3.5-6.1); RED CELL DISTRIBUTION WIDTH 12.7 % (11.5-14.5); WHITE BLOOD COUNT 10.3 10^3/ul (4.5-11.0)
[2018-04-12 08:12] LABS: PARTIAL THROMBOPLASTIN TIME 27.9 Seconds (25.1-36.5); PROTHROMBIN TIME 11.5 SECONDS (9.4-12.5)
[2018-04-12 08:14] LABS: ALB/GLOB RATIO 1.4 (1.1-1.8); ALBUMIN 4.3 g/dL (3.0-4.8); ALT/SGPT 26 U/L (7-56); AST/SGOT 27 U/L (17-59); BLOOD UREA NITROGEN 11 mg/dL (7-21); CALCIUM 9.5 mg/dL (8.4-10.5); GFR AFRICAN-AMERICAN > 60; GFR NON-AFRICAN AMERICAN > 60; LIPASE 105 U/L (23-300)
[2018-04-12 08:20] LABS: D DIMER < 200 ng/mlDDU (0-243)
[2018-04-12 08:26] LABS: TROPONIN I < 0.01 ng/mL
--- NOTE | 2018-04-12 08:49 | RAD ---
Date of service: 04/12/2018 HISTORY: abdominal/shoulder pain COMPARISON: 12/07/2017 FINDINGS: LUNGS: The lungs are well inflated and clear. PLEURA: No significant pleural effusion identified, no pneumothorax apparent. CARDIOVASCULAR: Normal. OSSEOUS STRUCTURES: There is severe kyphosis in the thoracic spine. VISUALIZED UPPER ABDOMEN: Normal. OTHER FINDINGS: None. IMPRESSION: No active pulmonary disease.
[2018-04-12] MEDS ORDERED: Alum-Mag Hydrox-Simethicone Susp (30 mL) PO STA (10:04)
[2018-04-12] MEDS ORDERED: Atrop/Hyosc/Scopal/PB Elixir (120 ml) PO STA (10:04)
--- NOTE | 2018-04-12 11:39 | CT ---
Date of service: 04/12/2018 PROCEDURE: CT Chest, Abdomen and Pelvis with and without intravenous contrast HISTORY: c/o CP, should pain elev BP COMPARISON: None available. TECHNIQUE: IV dose administered: 150 cc of Omni 350 Radiation dose: Total exam DLP = 1343 mGy-cm. This CT exam was performed using one or more of the following dose reduction techniques: Automated exposure control, adjustment of the mA and/or kV according to patient size, and/or use of iterative reconstruction technique. FINDINGS: CT CHEST WITH CONTRAST: LUNGS: Clear. No nodule, mass or consolidation. MEDIASTINUM: Unremarkable. Normal caliber aorta and pulmonary arterial trunk. No aortic dissection. Normal size heart. No evidence of pulmonary embolus LYMPH NODES: Unremarkable. PLEURA: Unremarkable. No pneumothorax. No pleural fluid. BONES: There is severe sharp angle kyphosis at the junction of the cervical and thoracic spine. This is a chronic finding. OTHER FINDINGS: None. CT ABDOMEN AND PELVIS: LIVER: Unremarkable. No gross lesion or ductal dilatation. GALLBLADDER AND BILE DUCTS: Unremarkable. PANCREAS: Unremarkable. No gross lesion or ductal dilatation. SPLEEN: Unremarkable. ADRENALS: Unremarkable. No mass. KIDNEYS AND URETERS: Unremarkable. No hydronephrosis. No solid mass. VASCULATURE: Unremarkable. No aortic aneurysm. BOWEL: Unremarkable. No obstruction. No gross mural thickening. There is severe diverticulosis of the sigmoid colon without evidence of diverticulitis APPENDIX: Normal appendix. PERITONEUM: Unremarkable. No free fluid. No free air. LYMPH NODES: Unremarkable. No enlarged lymph nodes. BLADDER: Unremarkable. REPRODUCTIVE: Unremarkable. BONES: No acute fracture. OTHER FINDINGS: None. IMPRESSION: No evidence of pulmonary embolus or aortic dissection. No acute intrathoracic or intra-abdominal findings
[2018-04-12 13:53] VITALS: BP 128/72; PULSE 72; RESP 18; TEMP 98; O2SAT 95
--- NOTE | 2018-04-12 21:29 | CARD ---
APPROVED REPORT Date of service: 04/12/2018 EKG Measurement Heart [id number] <Conclusion> Sinus rhythm with 1st degree AV block Prolonged QT Abnormal ECG
== END 2018-04-12 13:18 | disposition home or self-care (01) ==
LOC: ED 06:26
DX: R10.9 Unspecified abdominal pain (principal); I10 Essential (primary) hypertension
CPT/HCPCS: 71045; 71275; 74174; 80053; 82550; 83615; 83690; 84484; 85025; 85378; 85610; 85730; 93005; 96360; 99284; J7030; Q9967

== ENCOUNTER 2018-05-10 07:37 | Emergency (ER) | payer BC, MEDICARE ==
[2018-05-10 07:37] VITALS: BMI 29.9
[2018-05-10 07:51] VITALS: TEMP 98.4
[2018-05-10] MEDS ORDERED: Sodium Chloride 0.9% 500 ML IV STA (08:00)
[2018-05-10] MEDS ORDERED: Pantoprazole 40 MG in Sodium Chloride 0.9% 100 ML IV STA (08:00)
--- NOTE | 2018-05-10 08:15 | ED PDOC ---
Arrival/HPI - General Chief Complaint: Abdominal Pain Time Seen by Provider: 05/10/18 07:53 Historian: Patient - History of Present Illness Narrative History of Present Illness (Text): 05/10/18 07:55 A 82 year old male, whose past medical history includes CAD s/p stents, hyperlipidemia and hypertension, presents to the emergency department complaining of abdominal pain and nausea for the past 4 weeks. Patient reports he has CT Abd/Pelvis performed in the past, however findings were negative. Mentions he has an appointment with Dr. Jiménez for evaluation of symptoms, however patient states he is unable to wait and decided to visit the ER instead. Patient denies any fever, cough, vomiting, or any other complaints at this time. PMD: Dr. Rosales 05/10/18 17:08 Time/Duration: Other (4 weeks) Symptom Onset: Sudden, Gradual Symptom Course: Unchanged Past Medical History - Provider Review Nursing Documentation Reviewed: Yes - Infectious Disease Hx of Infectious Diseases: None - Tetanus Immunization Tetanus Immunization: Unknown - Cardiac Hx Angina: No Hx Hypertension: Yes Hx Pacemaker: No - Neurological Hx Paralysis: No - HEENT Hx HEENT Disorder: No - Renal Hx Renal Disorder: No - Endocrine/Metabolic Hx Endocrine Disorders: No - Hematological/Oncological Hx Blood Transfusions: No Hx Blood Transfusion Reaction: No - Musculoskeletal/Rheumatological Hx Musculoskeletal Disorders: No - Gastrointestinal Hx Gastroesophageal Reflux: Yes - Psychiatric Hx Depression: No Hx Emotional Abuse: No Hx Physical Abuse: No Hx Substance Use: No - Surgical History Hx Cardiac Catheterization: Yes (1 stent) - Anesthesia Hx Anesthesia: Yes Hx Anesthesia Reactions: Yes (DIFFICULT INTUBATION) Hx Malignant Hyperthermia: No - Suicidal Assessment Feels Threatened In Home Enviroment: No Family/Social History - Physician Review Nursing Documentation Reviewed: Yes Family/Social History: No Known Family HX Smoking Status: Unknown If Ever Smoked Hx Alcohol Use: No Hx Substance Use: No Hx Substance Use Treatment: No Allergies/Home Meds Allergies/Adverse Reactions: Allergies clopidogrel bisulfate [From Plavix] Allergy (Verified 04/12/18 06:33) REDNESS Home Medications: Home Meds Medication Instructions Recorded Confirmed Amlodipine Besylate 5 mg PO DAILY 07/23/12 04/12/18 Aspirin 81 mg PO DAILY 07/23/12 04/12/18 Lisinopril 20 mg PO DAILY 07/23/12 04/12/18 Metoprolol Tartrate 50 mg PO BID 07/23/12 04/12/18 Rosuvastatin Calcium [Crestor] 10 mg PO DAILY 07/23/12 04/12/18 Alprazolam [Xanax] 0.5 mg PO DAILY 10/28/13 04/12/18 Esomeprazole Magnesium [Nexium] 40 mg PO DAILY 10/28/13 04/12/18 Review of Systems - Physician Review All systems were reviewed & negative as marked: Yes - Review of Systems Constitutional: absent: Fevers Respiratory: absent: Cough Gastrointestinal: Abdominal Pain, Nausea. absent: Vomiting Physical Exam Vital Signs Reviewed: Yes Vital Signs Temp Pulse Resp BP Pulse Ox 05/10/18 09:44 98.4 F 68 17 140/68 97 05/10/18 09:43 98.4 F 68 17 140/68 97 05/10/18 07:48 98.4 F 72 18 151/78 H 96 Temperature: Afebrile Blood Pressure: Normal Pulse: Regular Respiratory Rate: Normal Appearance: Positive for: Well-Appearing, Non-Toxic, Comfortable Pain Distress: None Mental Status: Positive for: Alert and Oriented X 3 - Systems Exam Head: Present: Atraumatic, Normocephalic Pupils: Present: PERRL Extroacular Muscles: Present: EOMI Conjunctiva: Present: Normal Mouth: Present: Moist Mucous Membranes Neck: Present: Normal Range of Motion Respiratory/Chest: Present: Clear to Auscultation, Good Air Exchange. No: Respiratory Distress, Accessory Muscle Use Cardiovascular: Present: Regular Rate and Rhythm, Normal S1, S2. No: Murmurs Abdomen: Present: Tenderness (epigastric mild tenderness) Back: Present: Normal Inspection Upper Extremity: Present: Normal Inspection. No: Cyanosis, Edema Lower Extremity: Present: Normal Inspection. No: Edema Neurological: Present: GCS=15, CN II-XII Intact, Speech Normal Skin: Present: Warm, Dry, Normal Color. No: Rashes Psychiatric: Present: Alert, Oriented x 3, Normal Insight, Normal Concentration Medical Decision Making ED Course and Treatment: 05/10/18 08:00 Impression: 82 year old male with abdominal pain. Physical exam shows mild epigastric tenderness; no other acute findings on examination. suspect gastriits pud, gerd Plan: -- EKG -- Labs -- Zofran -- Protonix -- IV Fluids -- Urinalysis -- Reassess and disposition Prior Visits: Notes and results from previous visits were reviewed. Patient was last seen in the emergency department on 04/12/2018 for abdominal pain. Patient was discharged home. Progress Notes: EKG: Ordered, reviewed, and independently interpreted the EKG. Rate : 69 BPM Rhythm : NSR Interpretation : No ST-segment elevations or depressions, no T-wave inversions, normal intervals. Comparison : No previous EKG for comparison. 05/10/18 09:11 Patient has been offered to have repeat CT, however he has declined. Patient currently in no acute distress. 05/10/18 17:09 pt reassesd pain resolved. recent neg ct. labs neg. advise outpt fu. - Lab Interpretations Lab Results: 05/10/18 08:35 05/10/18 08:35 Lab Results 05/10/18 08:35: Sodium 137, Potassium 4.5, Chloride 98, Carbon Dioxide 30, Anion Gap 13, BUN 12, Creatinine 0.9, Est GFR ( Amer) > 60, Est GFR (Non- Af Amer) > 60, Random Glucose 113 H, Calcium 9.2, Total Bilirubin 0.5, Direct Bilirubin 0.0, AST 25, ALT 24, Alkaline Phosphatase 51, Lactate Dehydrogenase 380, Total Creatine Kinase 48, Troponin I < 0.01, Total Protein 7.0, Albumin 4.2 , Globulin 2.9, Albumin/Globulin Ratio 1.5, Amylase 79, Lipase 96 05/10/18 08:35: Urine Color Yellow, Urine Appearance Clear, Urine pH 7.5, Ur Specific [place] 1.010, Urine Protein Negative, Urine Glucose (UA) Negative, Urine Ketones Negative, Urine Blood Negative, Urine Nitrate Negative, Urine Bilirubin Negative, Urine Urobilinogen 0.2, Ur Leukocyte Esterase Negative 05/10/18 08:35: PT 12.2, INR 1.06, APTT 29.1 05/10/18 08:35: WBC 9.3, RBC 4.56, Hgb 13.7 L, Hct 40.2 L, MCV 88.2, MCH 30.0, MCHC 34.1, RDW 12.8, Plt Count 192, MPV 10.1, Gran % 72.4 H, Lymph % (Auto) 19.0 L, Jones % (Auto) 7.6 H, Eos % (Auto) 0.8 L, Baso % (Auto) 0.2, Gran # 6.71 H, Lymph # (Auto) 1.8, Jones # (Auto) 0.7 H, Eos # (Auto) 0.1, Baso # (Auto) 0.02 I have reviewed the lab results: Yes - Medication Orders Current Medication Orders: Discontinued Medications Sodium Chloride (Sodium Chloride 0.9%) 500 mls @ 999 mls/hr IV .Q31M STA Stop: 05/10/18 08:30 Last Admin: 05/10/18 08:38 Dose: 999 mls/hr eMAR Start Stop Document 05/10/18 08:38 [facility] 08[id number] Intravenous Solution Start Date 05/10/18 Start Time 08:38 End Date 05/10/18 End time 09:10 Total Infusion Time 32 Ondansetron HCl (Zofran Inj) 4 mg IVP STAT STA Stop: 05/10/18 08:01 Last Admin: 05/10/18 08:35 Dose: 4 mg IVP Administration Document 05/10/18 08:35 [facility] (Rec: 05/10/18 08:35 [id number] Charges for Administration # of IVP Administrations 1 Pantoprazole Sodium (Protonix Inj) 40 mg IVP ONCE ONE Stop: 05/10/18 08:16 Last Admin: 05/10/18 08:34 Dose: 40 mg IVP Administration Document 05/10/18 08:34 [facility] (Rec: 05/10/18 08:35 [id number] Charges for Administration # of IVP Administrations 1 - Scribe Statement The provider has reviewed the documentation as recorded by the Rubén Acevedo Provider Scribe Attestation: All medical record entries made by the Rubén were at my direction and personally dictated by me. I have reviewed the chart and agree that the record accurately reflects my personal performance of the history, physical exam, medical decision making, and the department course for this patient. I have also personally directed, reviewed, and agree with the discharge instructions and disposition. Disposition/Present on Arrival - Present on Arrival Any Indicators Present on Arrival: No History of DVT/PE: No History of Uncontrolled Diabetes: No Urinary Catheter: No History of Decub. Ulcer: No History Surgical Site Infection Following: None - Disposition Have Diagnosis and Disposition been Completed?: Yes Diagnosis: Abdominal pain Disposition: HOME/ ROUTINE Disposition Time: 09:00 Condition: STABLE Discharge Instructions (ExitCare): Acute Abdomen (Belly Pain), Adult (DC) Additional Instructions: return to er with worsening symptoms or concerns. Prescriptions: Famotidine [Pepcid] 20 mg PO DAILY #20 tab Referrals: [employer] [facility] [Outside] - Follow up with primary [facility] [Outside] - Follow up with primary Jeremiah Jiménez MD [Staff Provider] - Follow up with primary Kelsea Walker MD [Primary Care Provider] - Follow up with primary Forms: [employer] (Martiniquais)
[2018-05-10 08:48] LABS: BASO # 0.02 K/mm3 (0.0-2.0); BASO % 0.2 % (0.0-3.0); EOS # 0.1 (0.0-0.7); EOS % 0.8 % (1.5-5.0); GRAN # 6.71 (1.4-6.5); GRAN % 72.4 % (50.0-68.0); HEMOGLOBIN 13.7 g/dL (14.0-18.0); LYMPH # 1.8 (1.2-3.4); MEAN CELL VOLUME 88.2 fl (80.0-105.0); MEAN CORPUSCULAR HGB CONC 34.1 g/dl (31.0-37.0); MEAN PLATELET VOLUME 10.1 fl (7.0-11.0); MONO # 0.7 (0.1-0.6); MONO % 7.6 % (1.0-6.0); RBC 4.56 10^6/uL (3.5-6.1); RED CELL DISTRIBUTION WIDTH 12.8 % (11.5-14.5); WHITE BLOOD COUNT 9.3 10^3/ul (4.5-11.0)
[2018-05-10 08:50] LABS: PH,URINE 7.5 (4.7-8.0); URINE BILIRUBIN NEGATIVE (NEGATIVE); URINE BLOOD NEGATIVE (NEGATIVE); URINE GLUCOSE (UA) NEGATIVE (NEGATIVE); URINE LEUKOCYTE ESTERASE NEGATIVE Leu/uL (NEGATIVE); URINE PROTEIN NEGATIVE mg/dL (<30 mg/dL); URINE UROBILINOGEN 0.2 E.U./dL (<1 E.U./dL)
[2018-05-10 08:58] LABS: URINE APPEARANCE CLEAR (CLEAR); URINE COLOR YELLOW (YELLOW)
[2018-05-10 09:03] LABS: INR 1.06; PARTIAL THROMBOPLASTIN TIME 29.1 Seconds (25.1-36.5); PROTHROMBIN TIME 12.2 SECONDS (9.4-12.5)
[2018-05-10 09:05] LABS: ALB/GLOB RATIO 1.5 (1.1-1.8); ALBUMIN 4.2 g/dL (3.0-4.8); ALT/SGPT 24 U/L (7-56); AMYLASE 79 U/L (35-125); AST/SGOT 25 U/L (17-59); BLOOD UREA NITROGEN 12 mg/dL (7-21); CALCIUM 9.2 mg/dL (8.4-10.5); GFR NON-AFRICAN AMERICAN > 60; LIPASE 96 U/L (23-300)
[2018-05-10 09:16] LABS: TROPONIN I < 0.01 ng/mL
[2018-05-10 09:43] VITALS: BP 140/68; PULSE 68; RESP 17; O2SAT 97
--- NOTE | 2018-05-11 14:08 | CARD ---
APPROVED REPORT Date of service: 05/10/2018 EKG Measurement Heart [id number] <Conclusion> Sinus rhythm with 1st degree AV block Left axis deviation Nonspecific T wave abnormality Prolonged QT Abnormal ECG
== END 2018-05-10 09:50 | disposition home or self-care (01) ==
LOC: ED 07:37
DX: R10.9 Unspecified abdominal pain (principal); I25.10 Atherosclerotic heart disease of native coronary artery without angina pectoris; I10 Essential (primary) hypertension; E78.5 Hyperlipidemia, unspecified; Z95.5 Presence of coronary angioplasty implant and graft
CPT/HCPCS: 80053; 81003; 82150; 82248; 82550; 83615; 83690; 84484; 85025; 85610; 85730; 93005; 96361; 96374; 96375; 99283; C9113; J2405; J7040

== ENCOUNTER 2018-05-23 02:01 | Inpatient (IN) | payer BC, MEDICARE ==
[2018-05-23 02:27] VITALS: BMI 30.5
[2018-05-23 03:09] LABS: BASO # 0.02 K/mm3 (0.0-2.0); BASO % 0.1 % (0.0-3.0); EOS # 0.2 (0.0-0.7); EOS % 1.4 % (1.5-5.0); GRAN # 10.55 (1.4-6.5); GRAN % 73.6 % (50.0-68.0); HEMOGLOBIN 13.2 g/dL (14.0-18.0); LYMPH # 2.3 (1.2-3.4); MEAN CELL VOLUME 87.8 fl (80.0-105.0); MEAN CORPUSCULAR HEMOGLOBIN 29.9 pg (25.0-35.0); MEAN PLATELET VOLUME 9.7 fl (7.0-11.0); MONO # 1.3 (0.1-0.6); MONO % 8.9 % (1.0-6.0); RBC 4.42 10^6/uL (3.5-6.1); RED CELL DISTRIBUTION WIDTH 12.9 % (11.5-14.5); WHITE BLOOD COUNT 14.3 10^3/ul (4.5-11.0)
--- NOTE | 2018-05-23 03:16 | ED PDOC ---
Arrival/HPI - General Chief Complaint: Abdominal Pain Time Seen by Provider: 05/23/18 02:49 Historian: Patient - History of Present Illness Narrative History of Present Illness (Text): 05/23/18 02:45 82 year old male, whose past medical history includes hypertension, CAD s/p stents, and hyperlipidema, presents to the emergency department complaining of intermittent lower abdominal pain that began yesterday. Patient reports the pain comes and goes. He states that this is his 3rd time coming to the ER for this pain. Patient denies fever, chills, chest pain, shortness of breath, nausea, vomiting, diarrhea, constipation, urinary symptoms, back pain, neck pain, headache, dizziness, or any other complaints. PMD: Dr. Rosales Time/Duration: 24 hours Symptom Onset: Gradual Symptom Course: Unchanged Activities at Onset: Light Context: Home Past Medical History - Provider Review Nursing Documentation Reviewed: Yes - Infectious Disease Hx of Infectious Diseases: None - Tetanus Immunization Tetanus Immunization: Unknown - Cardiac Hx Angina: No Hx Hypertension: Yes Hx Pacemaker: No - Neurological Hx Paralysis: No - HEENT Hx HEENT Disorder: No - Renal Hx Renal Disorder: No - Endocrine/Metabolic Hx Endocrine Disorders: No - Hematological/Oncological Hx Blood Transfusions: No Hx Blood Transfusion Reaction: No - Musculoskeletal/Rheumatological Hx Musculoskeletal Disorders: No - Gastrointestinal Hx Gastroesophageal Reflux: Yes - Psychiatric Hx Depression: No Hx Emotional Abuse: No Hx Physical Abuse: No Hx Substance Use: No - Surgical History Hx Cardiac Catheterization: Yes (2 stents) - Anesthesia Hx Anesthesia: Yes Hx Anesthesia Reactions: Yes (DIFFICULT INTUBATION) Hx Malignant Hyperthermia: No - Suicidal Assessment Feels Threatened In Home Enviroment: No Family/Social History - Physician Review Nursing Documentation Reviewed: Yes Family/Social History: No Known Family HX Smoking Status: Unknown If Ever Smoked Hx Alcohol Use: No Hx Substance Use: No Hx Substance Use Treatment: No Allergies/Home Meds Allergies/Adverse Reactions: Allergies clopidogrel bisulfate [From Plavix] Allergy (Verified 04/12/18 06:33) REDNESS Home Medications: Home Meds Medication Instructions Recorded Confirmed Amlodipine Besylate 5 mg PO DAILY 07/23/12 05/23/18 Aspirin 81 mg PO DAILY 07/23/12 05/23/18 Lisinopril 20 mg PO DAILY 07/23/12 05/23/18 Metoprolol Tartrate 50 mg PO BID 07/23/12 05/23/18 Rosuvastatin Calcium [Crestor] 10 mg PO DAILY 07/23/12 05/23/18 Alprazolam [Xanax] 0.5 mg PO DAILY 10/28/13 05/23/18 Esomeprazole Magnesium [Nexium] 40 mg PO DAILY 10/28/13 05/23/18 Review of Systems - Physician Review All systems were reviewed & negative as marked: Yes - Review of Systems Constitutional: absent: Fevers, Other (Chills) Respiratory: absent: SOB Cardiovascular: absent: Chest Pain Gastrointestinal: Abdominal Pain. absent: Constipation, Diarrhea, Nausea, Vomiting Genitourinary Male: absent: Dysuria, Frequency, Hematuria Musculoskeletal: absent: Back Pain, Neck Pain Neurological: absent: Headache, Dizziness Physical Exam - Physical Exam Narrative Physical Exam (Text): Gen: VS reviewed, alert, well developed, well nourished, nontoxic, mild distress. ENT: normal pharynx. Eye: EOMI, PERRL. Neck: no JVD, supple, no adenopathy. CV: regular rate, regular rhythm, no rubs, no murmur, no gallops, S1, S2, pulses equal and strong. Pulm: no distress, clear to auscultation, no wheeze, no rhonchi, breath sounds equal, no rales. Abd: Left lower quadrant tenderness with guarding, no rebound, no rigidity, normal bowel sounds. Ext: no edema. Skin: good color, no rash, no cyanosis. Psych: responds appropriately to questions, normal affect. Neuro: oriented x 3, CN2-12 intact grossly, motor intact, sensation intact. Vital Signs Reviewed: Yes Vital Signs Temp Pulse Resp BP Pulse Ox 05/23/18 02:25 97.8 F 74 18 166/79 H 97 Temperature: Afebrile Blood Pressure: Hypertensive Pulse: Regular Respiratory Rate: Normal Medical Decision Making ED Course and Treatment: 05/23/18 02:50 Impression: 82 year old male presents complaining of intermittent lower abdominal pain that began yesterday. Plan: -- CT abd and pelvis IV Contrast -- EKG -- Labs -- UA -- Reassess and disposition Prior Visits: Notes and results from previous visits were reviewed. Patient was last seen in the emergency department on 09/17/18 presents complaining of abdominal pain and nausea for the past 4 weeks. Patient was discharged home. Progress Notes: 05/23/18 05:13 Case discussed with medical charge entry specialist and Dr. Suri Fall who is aware and agrees with the plan. Accepts patient into hospitalist service. Patient to be admitted for IV abx for this patient with advanced age and leukocytosis. 05/23/18 05:18 - Lab Interpretations I have reviewed the lab results: Yes - RAD Interpretation Narrative RAD Interpretations (Text): EXAM: CT Abdomen and Pelvis w/ IV Contrast Signed: 05/23/18 4:40 BY: Grant Kilpatrick M.D. IMPRESSION: 1. 4cm cyst present in the mid pole of the right kidney. 2. Enteritis. Infectious and inflammatory etiologies are considered. 3. There is diffuse diverticulosis noted involving descending and sigmoid colon. There is minimal inflammatory stranding noted adjacent to the distal descending and proximal sigmoid colon compatible with mild acute diverticulitis. 05/23/18 04:59 Radiology Orders: 05/23/18 02:51 ABDOMEN & PELVIS [ABD & PELVIS IV CONTRAST ONLY] [CT] Stat Freight Rate Analyst: Radiologist - EKG Interpretation EKG Interpretation (Text): 05/23/18 05:00 0311: sinus rhythm at 72 bpm, nml qrs, nml axis, lvh, 1st degree av block, no acute sttw abn Interpreted by ED Physician: Yes Type: 12 lead EKG - Scribe Statement The provider has reviewed the documentation as recorded by the Scribe Geri Andrade Provider Scribe Attestation: All medical record entries made by the Scribe were at my direction and personally dictated by me. I have reviewed the chart and agree that the record accurately reflects my personal performance of the history, physical exam, medical decision making, and the department course for this patient. I have also personally directed, reviewed, and agree with the discharge instructions and disposition. Disposition/Present on Arrival - Present on Arrival Any Indicators Present on Arrival: No History of DVT/PE: No History of Uncontrolled Diabetes: No Urinary Catheter: No History of Decub. Ulcer: No History Surgical Site Infection Following: None - Disposition Have Diagnosis and Disposition been Completed?: Yes Diagnosis: Diverticulitis Disposition: HOSPITALIZED Disposition Time: 05:18 Patient Plan: Admission Patient Problems: Current Active Problems Problem Status Onset Diverticulitis Acute Condition: STABLE Referrals: Juan Luo MD [Primary Care Provider] - Follow up with primary Forms: [email or web address] (Sammarinese)
[2018-05-23 03:18] LABS: INR 1.07; PARTIAL THROMBOPLASTIN TIME 26.9 Seconds (25.1-36.5); PROTHROMBIN TIME 12.3 SECONDS (9.4-12.5)
[2018-05-23 03:35] LABS: TROPONIN I < 0.01 ng/mL
[2018-05-23 03:38] LABS: ALB/GLOB RATIO 1.3 (1.1-1.8); ALBUMIN 3.9 g/dL (3.0-4.8); ALT/SGPT 25 U/L (7-56); AST/SGOT 32 U/L (17-59); BLOOD UREA NITROGEN 15 mg/dL (7-21); CALCIUM 9.2 mg/dL (8.4-10.5); GFR NON-AFRICAN AMERICAN > 60; LIPASE 113 U/L (23-300)
[2018-05-23] MEDS ORDERED: Iohexol 350 MG/100 ML VIAL ONE (03:45)
[2018-05-23 04:28] LABS: URINE BILIRUBIN NEGATIVE (NEGATIVE); URINE BLOOD NEGATIVE (NEGATIVE); URINE GLUCOSE (UA) NEGATIVE (NEGATIVE); URINE LEUKOCYTE ESTERASE NEGATIVE Leu/uL (NEGATIVE); URINE PROTEIN NEGATIVE mg/dL (<30 mg/dL); URINE UROBILINOGEN 0.2 E.U./dL (<1 E.U./dL)
[2018-05-23 04:29] LABS: URINE APPEARANCE CLEAR (CLEAR); URINE COLOR YELLOW (YELLOW)
[2018-05-23] MEDS ORDERED: Piperacillin/Tazobact 3.375 gm 100 ML IVPB STA (05:14)
[2018-05-23] MEDS ORDERED: Sodium Chloride 0.9% 1,000 ML IV SCH (05:30)
--- NOTE | 2018-05-23 06:11 | CP.PCM.HP ---
History of Present Illness - History of Present Illness History of Present Illness: Santhosh Santos PGY1 History and Physical for Dr Juan Fall Pt is an 82yo male with a PMH of HTN, CAD s/p 2 stents, PAD s/p LE arterial gladis nt, HLD who presents to the ED complaining of 10/10 constant, tight lower abdominal pain which started yesterday. The pain does not radiate. Pt denies travel, or eating anything new. Pt reports nausea, but denies vomiting, diarrhea, constipation, fever or chills. Pt denies blood in the stool. Pt denies recent sick contacts. Pt reports using Pepto bismol which has been making his BM dark. Pt denies pain with urination or blood in the urine. A 12 point ROS was obtained and added to the HPI where appropriate. PMH: HTN, CAD s/p 2 stents, PAD s/p LE arterial stent, HLD PSH: cardiac stents, LE arterial stents, FH: mother at 22, father at 67, [place] SH: denies tobacco, denies alcohol, denies drugs, lives with Home meds: updates in chart Allergies: plavix PMD: Potoczek GI: Jiménez Cardio: Batt[place] Present on Admission - Present on Admission Any Indicators Present on Admission: No Review of Systems - Review of Systems Review of Systems: a 12 point ROS was obtained and added to the HPI where appropriate Past Patient History - Infectious Disease Hx of Infectious Diseases: None - Tetanus Immunizations Tetanus Immunization: Unknown - Past Social History Smoking Status: Unknown If Ever Smoked - CARDIAC Hx Angina: No Hx Hypertension: Yes Hx Pacemaker: No - NEUROLOGICAL Hx Paralysis: No - HEENT Hx HEENT Problems: No - RENAL Hx Chronic Kidney Disease: No - ENDOCRINE/METABOLIC Hx Endocrine Disorders: No - HEMATOLOGICAL/ONCOLOGICAL Hx Blood Transfusions: No Hx Blood Transfusion Reaction: No - MUSCULOSKELETAL/RHEUMATOLOGICAL Hx Musculoskeletal Disorders: No - GASTROINTESTINAL Hx Gastroesophageal Reflux: Yes - PSYCHIATRIC Hx Depression: No Hx Emotional Abuse: No Hx Physical Abuse: No Hx Substance Use: No - SURGICAL HISTORY Hx Cardiac Catheterization: Yes (2 stents) - ANESTHESIA Hx Anesthesia: Yes Hx Anesthesia Reactions: Yes (DIFFICULT INTUBATION) Hx Malignant Hyperthermia: No Meds Allergies/Adverse Reactions: Allergies Allergy/AdvReac Type Severity Reaction Status Date / Time clopidogrel bisulfate Allergy REDNESS Verified 04/12/18 06:33 [From Plavix] Physical Exam - Constitutional Appears: No Acute Distress - Head Exam Head Exam: ATRAUMATIC, NORMOCEPHALIC - ENT Exam ENT Exam: Mucous Membranes Moist - Respiratory Exam Respiratory Exam: Clear to Auscultation Bilateral, NORMAL BREATHING PATTERN. absent: Accessory Muscle Use - Cardiovascular Exam Cardiovascular Exam: RRR, +S1, +S2 - GI/Abdominal Exam GI & Abdominal Exam: Normal Bowel Sounds, Soft, Tenderness Additional comments: lower abdomen tender to palpation - Extremities Exam Extremities exam: Positive for: pedal pulses present. Negative for: calf tenderness, pedal edema - Neurological Exam Neurological exam: Alert - Psychiatric Exam Psychiatric exam: Normal Affect, Normal Mood - Skin Skin Exam: Normal Color, Warm Results - Vital Signs Recent Vital Signs: Last Vital Signs Temp 97.8 F 05/23/18 02:25 Pulse 80 05/23/18 04:05 Resp 18 05/23/18 04:05 BP 143/81 05/23/18 04:05 Pulse Ox 97 05/23/18 04:05 - Labs Result Diagrams: 05/23/18 03:00 05/23/18 03:00 Labs: Laboratory Results - last 24 hr 05/23/18 05/23/18 05/23/18 03:00 03:00 03:00 WBC 14.3 H D RBC 4.42 Hgb 13.2 L Hct 38.8 L MCV 87.8 MCH 29.9 MCHC 34.0 RDW 12.9 Plt Count 199 MPV 9.7 Gran % 73.6 H Lymph % (Auto) 16.0 L [place] % (Auto) 8.9 H Eos % (Auto) 1.4 L Baso % (Auto) 0.1 Gran # 10.55 H Lymph # (Auto) 2.3 [place] # (Auto) 1.3 H Eos # (Auto) 0.2 Baso # (Auto) 0.02 PT 12.3 INR 1.07 APTT 26.9 Sodium 133 Potassium 4.1 Chloride 96 L Carbon Dioxide 28 Anion Gap 13 BUN 15 Creatinine 0.8 Est GFR ( Amer) > 60 Est GFR (Non-Af Amer) > 60 Random Glucose 108 Calcium 9.2 Total Bilirubin 0.6 AST 32 ALT 25 Alkaline Phosphatase 53 Troponin I < 0.01 Total Protein 6.9 Albumin 3.9 Globulin 2.9 Albumin/Globulin Ratio 1.3 Lipase 113 Urine Color Urine Appearance Urine pH Ur Specific [place] Urine Protein Urine Glucose (UA) Urine Ketones Urine Blood Urine Nitrate Urine Bilirubin Urine Urobilinogen Ur Leukocyte Esterase 05/23/18 03:45 WBC RBC Hgb Hct MCV MCH MCHC RDW Plt Count MPV Gran % Lymph % (Auto) [place] % (Auto) Eos % (Auto) Baso % (Auto) Gran # Lymph # (Auto) [place] # (Auto) Eos # (Auto) Baso # (Auto) PT INR APTT Sodium Potassium Chloride Carbon Dioxide Anion Gap BUN Creatinine Est GFR ( Amer) Est GFR (Non-Af Amer) Random Glucose Calcium Total Bilirubin AST ALT Alkaline Phosphatase Troponin I Total Protein Albumin Globulin Albumin/Globulin Ratio Lipase Urine Color Yellow Urine Appearance Clear Urine pH 6.0 Ur Specific [place] 1.010 Urine Protein Negative Urine Glucose (UA) Negative Urine Ketones Negative Urine Blood Negative Urine Nitrate Negative Urine Bilirubin Negative Urine Urobilinogen 0.2 Ur Leukocyte Esterase Negative Assessment & Plan - Assessment and Plan (Free Text) Assessment: Pt is an 82yo male with a PMH of HTN, CAD s/p 2 stents, PAD s/p LE arterial s tent, HLD who presents to the ED complaining of 10/10 constant, tight lower abdominal pain which started yesterday. Plan: Intractable abdominal pain, likely acute diverticulitis - follow up blood cultures - follow up stool cultures - follow up C. diff - 1/2 normal saline 100ml/hr - morphine 1mg IVP Q4 PRN - continue zosyn - CTAP: Enteritis. Infectious and inflammatory etiologies are considered. There is diffuse diverticulosis noted involving descending and sigmoid colon. There is minimal inflammatory stranding noted adjacent to the distal descending and proximal sigmoid colon compatible with mild acute diverticulitis. - Dr Jiménez GI consulted - NPO - follow up FOBT HTN - continue home amlodipine - continue home metoprolol - continue home lisinopril HLD - continue crestor Anxiety - continue home xanax Renal Cyst - CTAP: 4cm cyst present in the mid pole of the right kidney. - continue to monitor Prolonged QTc on EKG - continue to monitor - consider if QTc prolonging medications are needed Pt seen, examined, assessment and plan discussed with Dr Juan Santos PGY1, Internal Medicine Resident - Date & Time Date: 05/23/18 Time: 07:01
[2018-05-23] MEDS: Sodium Chloride 0.45% 1,000 ML IV SCH (06:33)
--- NOTE | 2018-05-23 08:21 | CT ---
Date of service: 05/23/2018 PROCEDURE: CT Abdomen and Pelvis with contrast HISTORY: LLQ pain COMPARISON: 100 cc Omnipaque TECHNIQUE: Contrast dose 100 cc Omnipaque 350. Radiation dose: Total exam DLP = mGy-cm. This CT exam was performed using one or more of the following dose reduction techniques: Automated exposure control, adjustment of the mA and/or kV according to patient size, and/or use of iterative reconstruction technique. FINDINGS: LOWER THORAX: Unremarkable. LIVER: Unremarkable. No gross lesion or ductal dilatation. GALLBLADDER AND BILE DUCTS: Unremarkable. PANCREAS: Unremarkable. No gross lesion or ductal dilatation. SPLEEN: Unremarkable. ADRENALS: Unremarkable. No mass. KIDNEYS AND URETERS: Unremarkable. No hydronephrosis. No solid mass. Incidental finding(s): Simple cyst right kidney 4.9 x 6.9 cm VASCULATURE: Unremarkable. No aortic aneurysm. BOWEL: Diverticulitis limited to the distal descending colon and a short segment of the sigmoid colon. Extensive diverticular disease identified throughout the remainder of the colon. APPENDIX: Normal appendix. PERITONEUM: Unremarkable. No free fluid. No free air. LYMPH NODES: Unremarkable. No enlarged lymph nodes. BLADDER: Unremarkable. REPRODUCTIVE: Unremarkable. BONES: No acute fracture. OTHER FINDINGS: None. IMPRESSION: Segmental diverticulitis, mild limited to sigmoid colon and adjacent descending colon. No evidence of drainable collection, loculated air or free air. Additional benign and/or incidental findings described above. Concordant results (preliminary interpretation) provided by [employer]. Procedure Completed: 04:01 Preliminary Report: Dictated and Authenticated: 04:40. Final Interpretation: 08:19.
--- NOTE | 2018-05-23 09:31 | CARD ---
APPROVED REPORT Date of service: 05/23/2018 EKG Measurement Heart [id number] CT [id number] <Conclusion> Sinus rhythm with 1st degree AV block Left axis deviation Incomplete right bundle branch block STTW changes No change
[2018-05-23] MEDS ORDERED: Piperacillin/Tazobact 3.375 gm 100 ML IVPB SCH (12:00)
--- NOTE | 2018-05-23 16:55 | CP.PCM.CON ---
History of Present Illness - History of Present Illness History of Present Illness: Infectious Disease Consultation: May 23, 2018 82 yo male with PMHx of HTN, CAD s/p 2 stents, PAD s/p LE arterial stent, HLD who presents to the ED complaining of 10/10 constant, tight lower abdominal pain which started yesterday. The pain does not radiate. Pt denies travel, or eating anything new. Pt reports nausea, but denies vomiting, diarrhea, constipation, fever or chills. Pt denies blood in the stool. Pt denies recent sick contacts. Pt reports using Pepto bismol which has been making his BM dark. Pt denies pain with urination or blood in the urine. CT scan showing mild segmental diverticulitis confined to sigmoid and adjacent descending colon. No collections, free air, or loculated air seen. PMHx: HTN, CAD, PAD, HLD PSHx: cardiac stents, LE arterial stents Allergies: Clopidogrel bisulfate Social Hx: No tobacco, EtOH, or illicit drug use. Active Medications Hydralazine HCl (Apresoline) 10 mg IVP Q6 PRN PRN Reason: Systolic Blood Pressure Sodium Chloride (Sodium Chloride 0.45%) 1,000 mls @ 100 mls/hr IV .Q10H [facility] Last Admin: 05/23/18 06:33 Dose: 100 mls/hr Piperacillin Sod/Tazobactam Sod (Zosyn 3.375 In Ns 100ml) 100 mls @ 200 mls/hr IVPB Q6 [facility]RIN; Protocol Stop: 05/23/18 18:29 Last Admin: 05/23/18 11:27 Dose: 200 mls/hr Morphine Sulfate (Morphine) 1 mg IVP Q4H PRN PRN Reason: Pain, moderate (4-7) Pantoprazole Sodium (Protonix Inj) 40 mg IVP DAILY [facility] Family Hx: Mother at 22 Father at 67, CAD, [place] ROS: Abdominal pain, Past Patient History - Infectious Disease Hx of Infectious Diseases: None - Tetanus Immunizations Tetanus Immunization: Unknown - Past Social History Smoking Status: Former Smoker - CARDIAC Hx Angina: No Hx Hypertension: Yes Hx Pacemaker: No - NEUROLOGICAL Hx Paralysis: No - HEENT Hx HEENT Problems: No - RENAL Hx Chronic Kidney Disease: No - ENDOCRINE/METABOLIC Hx Endocrine Disorders: No - HEMATOLOGICAL/ONCOLOGICAL Hx Blood Transfusions: No Hx Blood Transfusion Reaction: No - MUSCULOSKELETAL/RHEUMATOLOGICAL Hx Musculoskeletal Disorders: No Hx Falls: No - GASTROINTESTINAL Hx Gastroesophageal Reflux: Yes - PSYCHIATRIC Hx Depression: No Hx Emotional Abuse: No Hx Physical Abuse: No - SURGICAL HISTORY Hx Surgeries: Yes Hx Cardiac Catheterization: Yes (2 stents) - ANESTHESIA Hx Anesthesia: Yes Hx Anesthesia Reactions: Yes (DIFFICULT INTUBATION) Hx Malignant Hyperthermia: No Meds Allergies/Adverse Reactions: Allergies Allergy/AdvReac Type Severity Reaction Status Date / Time clopidogrel bisulfate Allergy REDNESS Verified 04/12/18 06:33 [From Plavix] - Medications Medications: Current Medications Hydralazine HCl (Apresoline) 10 mg IVP Q6 PRN PRN Reason: Systolic Blood Pressure Sodium Chloride (Sodium Chloride 0.45%) 1,000 mls @ 100 mls/hr IV .Q10H [facility] Last Admin: 05/23/18 06:33 Dose: 100 mls/hr Piperacillin Sod/Tazobactam Sod (Zosyn 3.375 In Ns 100ml) 100 mls @ 200 mls/hr IVPB Q6 [facility]; Protocol Stop: 05/23/18 18:29 Last Admin: 05/23/18 11:27 Dose: 200 mls/hr Morphine Sulfate (Morphine) 1 mg IVP Q4H PRN PRN Reason: Pain, moderate (4-7) Pantoprazole Sodium (Protonix Inj) 40 mg IVP DAILY [facility] Physical Exam - Constitutional Appears: Non-toxic, No Acute Distress, Chronically Ill - Head Exam Head Exam: ATRAUMATIC, NORMOCEPHALIC - Eye Exam Eye Exam: EOMI, PERRL Pupil Exam: NORMAL ACCOMODATION, PERRL - ENT Exam ENT Exam: Mucous Membranes Moist, Normal External Ear Exam, TM's Normal Bilaterally - Neck Exam Neck exam: Positive for: Full Rom, Normal Inspection - Respiratory Exam Respiratory Exam: Clear to Auscultation Bilateral, NORMAL BREATHING PATTERN. absent: Rales, Rhonchi, Wheezes - Cardiovascular Exam Cardiovascular Exam: REGULAR RHYTHM, RRR, +S1, +S2 - GI/Abdominal Exam GI & Abdominal Exam: Normal Bowel Sounds, Soft, Tenderness. absent: Distended - Extremities Exam Extremities exam: Positive for: full ROM, normal inspection - Neurological Exam Neurological exam: Alert, CN II-XII Intact, Oriented x3 - Psychiatric Exam Psychiatric exam: Normal Affect, Normal Mood - Skin Skin Exam: Intact, Normal Color Results - Vital Signs Recent Vital Signs: Last Vital Signs Temp 98.1 F 05/23/18 07:32 Pulse 77 05/23/18 07:32 Resp 15 05/23/18 07:32 BP 150/78 05/23/18 07:32 Pulse Ox 100 05/23/18 06:58 - Labs Result Diagrams: 05/23/18 03:00 05/23/18 03:00 Labs: Laboratory Results - last 24 hr 05/23/18 05/23/18 05/23/18 03:00 03:00 03:00 WBC 14.3 H D RBC 4.42 Hgb 13.2 L Hct 38.8 L MCV 87.8 MCH 29.9 MCHC 34.0 RDW 12.9 Plt Count 199 MPV 9.7 Gran % 73.6 H Lymph % (Auto) 16.0 L [place] % (Auto) 8.9 H Eos % (Auto) 1.4 L Baso % (Auto) 0.1 Gran # 10.55 H Lymph # (Auto) 2.3 [place] # (Auto) 1.3 H Eos # (Auto) 0.2 Baso # (Auto) 0.02 PT 12.3 INR 1.07 APTT 26.9 Sodium 133 Potassium 4.1 Chloride 96 L Carbon Dioxide 28 Anion Gap 13 BUN 15 Creatinine 0.8 Est GFR ( Amer) > 60 Est GFR (Non-Af Amer) > 60 Random Glucose 108 Calcium 9.2 Total Bilirubin 0.6 AST 32 ALT 25 Alkaline Phosphatase 53 Troponin I < 0.01 Total Protein 6.9 Albumin 3.9 Globulin 2.9 Albumin/Globulin Ratio 1.3 Lipase 113 Urine Color Urine Appearance Urine pH Ur Specific [place] Urine Protein Urine Glucose (UA) Urine Ketones Urine Blood Urine Nitrate Urine Bilirubin Urine Urobilinogen Ur Leukocyte Esterase 05/23/18 03:45 WBC RBC Hgb Hct MCV MCH MCHC RDW Plt Count MPV Gran % Lymph % (Auto) [place] % (Auto) Eos % (Auto) Baso % (Auto) Gran # Lymph # (Auto) [place] # (Auto) Eos # (Auto) Baso # (Auto) PT INR APTT Sodium Potassium Chloride Carbon Dioxide Anion Gap BUN Creatinine Est GFR ( Amer) Est GFR (Non-Af Amer) Random Glucose Calcium Total Bilirubin AST ALT Alkaline Phosphatase Troponin I Total Protein Albumin Globulin Albumin/Globulin Ratio Lipase Urine Color Yellow Urine Appearance Clear Urine pH 6.0 Ur Specific [place] 1.010 Urine Protein Negative Urine Glucose (UA) Negative Urine Ketones Negative Urine Blood Negative Urine Nitrate Negative Urine Bilirubin Negative Urine Urobilinogen 0.2 Ur Leukocyte Esterase Negative Assessment & Plan - Assessment and Plan (Free Text) Assessment: 82 yo male with PMH of HTN, CAD s/p 2 stents, PAD s/p LE arterial stent, HLD who presents to the ED complaining of 10/10 constant, tight lower abdominal pain which started yesterday. CT scan showing mild segmental diverticulitis with perforation, collections, or free air. Patient started on Zosyn for antibiotic therapy. Can continue on Zosyn for the time being for antibiotic coverage. Supportive care. Thank you for allowing me to participate in the care of the patient, we will follow with you.
[2018-05-23] MEDS: Piperacillin/Tazobact 3.375 gm 100 ML IVPB SCH ×2 (17:13→23:43)
[2018-05-24] MEDS: Morphine 2 mg/ml ISec IVP PRN (01:05)
[2018-05-24] MEDS: Sodium Chloride 0.45% 1,000 ML IV SCH ×2 (03:00→17:20)
[2018-05-24] MEDS: Piperacillin/Tazobact 3.375 gm 100 ML IVPB SCH ×4 (05:24→23:31)
--- NOTE | 2018-05-24 05:28 | CP.PCM.PN ---
<Bossman Ricks - Last Filed: 05/24/18 13:36> Subjective - Date & Time of Evaluation Date of Evaluation: 05/24/18 Time of Evaluation: 06:03 - Subjective Subjective: Bossman Ricks DO PGY-1, Internal Medicine Resident. Hospitalist Progress Note Patient seen and examined at bedside. Patient is resting in bed, awake and oriented. Lower abdominal pain resolved but he complains of mild RUQ discomfort, non radiating, intermittent. Patient denied fever, chills,palpitations, headache, N/V/D Objective - Vital Signs/Intake and Output Vital Signs (last 24 hours): Temp Pulse Resp BP Pulse Ox 97.6 F 72 20 134/84 97 05/23/18 17:11 05/23/18 17:11 05/23/18 17:11 05/23/18 17:11 05/23/18 17:11 Intake and Output: 05/23/18 05/24/18 18:59 06:59 Intake Total 1200 Balance 1200 - Medications Medications: Current Medications Hydralazine HCl (Apresoline) 10 mg IVP Q6 PRN PRN Reason: Systolic Blood Pressure Sodium Chloride (Sodium Chloride 0.45%) 1,000 mls @ 100 mls/hr IV .Q10H [facility] Last Admin: 05/23/18 06:33 Dose: 100 mls/hr Piperacillin Sod/Tazobactam Sod (Zosyn 3.375 In Ns 100ml) 100 mls @ 200 mls/hr IVPB Q6 [facility]; Protocol Last Admin: 05/23/18 23:43 Dose: 200 mls/hr Morphine Sulfate (Morphine) 1 mg IVP Q4H PRN PRN Reason: Pain, moderate (4-7) Last Admin: 05/24/18 01:05 Dose: 1 mg Pantoprazole Sodium (Protonix Inj) 40 mg IVP DAILY [facility] - Labs Labs: 05/23/18 03:00 05/23/18 03:00 PT 12.3 SECONDS (9.4-12.5) 05/23/18 03:00 INR 1.07 05/23/18 03:00 APTT 26.9 Seconds (25.1-36.5) 05/23/18 03:00 - Constitutional Appears: Well, No Acute Distress - Head Exam Head Exam: ATRAUMATIC, NORMOCEPHALIC - Eye Exam Eye Exam: EOMI, Normal appearance Pupil Exam: NORMAL ACCOMODATION - ENT Exam ENT Exam: Mucous Membranes Moist, Normal Oropharynx - Neck Exam Neck Exam: Full ROM, Normal Inspection - Respiratory Exam Respiratory Exam: Clear to Ausculation Bilateral, NORMAL BREATHING PATTERN - Cardiovascular Exam Cardiovascular Exam: REGULAR RHYTHM, +S1, +S2. absent: Murmur - GI/Abdominal Exam GI & Abdominal Exam: Soft, Diminished Bowel Sounds. absent: Tenderness - Extremities Exam Extremities Exam: Full ROM, Normal Capillary Refill, Normal Inspection. absent: Joint Swelling, Pedal Edema - Back Exam Back Exam: NORMAL INSPECTION - Neurological Exam Neurological Exam: Alert, Awake, CN II-XII Intact, Normal Gait, Oriented x3 - Psychiatric Exam Psychiatric exam: Normal Affect, Normal Mood - Skin Skin Exam: Dry, Intact, Normal Color, Warm Assessment and Plan - Assessment and Plan (Free Text) Assessment: Pt is an 82yo male with a PMH of HTN, CAD s/p 2 stents, PAD s/p LE arterial s tent, HLD who presents to the ED with one day h/o constant, tight lower abdominal pain with no N/V/D. CT A/P revealed diffuse diverticulosis noted involving descending and sigmoid colon with minimal inflammatory stranding noted adjacent to the distal descending and proximal sigmoid colon compatible with mild acute diverticulitis. Patient admitted for diverticulitis Plan: Intractable abdominal pain, likely acute diverticulitis clinically improving, abdminal pain resolving, afebrile, WBC trending down continue zosyn as per ID consult continue 1/2 normal saline 100ml/hr morphine 1mg IVP Q4 PRN CT A/P: Enteritis. Infectious and inflammatory etiologies are considered. There is diffuse diverticulosis noted involving descending and sigmoid colon. There is minimal inflammatory stranding noted adjacent to the distal descending and proximal sigmoid colon compatible with mild acute diverticulitis. Dr Ashby GI consulted: advance diet to clear liquid then low-residue if tolerated, discharge home on cipro 500 bid and flagel 500 tid both x14 days. f/u outpatient for colonscopy clear liquid diet now. low-residue if tolerated bty the end of the day blood culture negative to date FOBT. stool cultures Abd U/S ordered HTN continue home amlodipine, metoprolol, lisinopril HLD continue crestor Case reviewed and plan discussed with Dr Cruz <Felton Cruz - Last Filed: 05/26/18 18:27> Objective - Vital Signs/Intake and Output Vital Signs (last 24 hours): Temp Pulse Resp BP Pulse Ox 97.7 F 65 20 159/95 H 95 05/26/18 06:00 05/26/18 10:36 05/26/18 06:00 05/26/18 10:36 05/26/18 06:00 Intake and Output: 05/26/18 05/26/18 06:59 18:59 Intake Total 3520 Output Total 800 Balance 2720 - Labs Labs: 05/26/18 07:15 05/26/18 07:15 PT 12.3 SECONDS (9.4-12.5) 05/23/18 03:00 INR 1.07 05/23/18 03:00 APTT 26.9 Seconds (25.1-36.5) 05/23/18 03:00 Attending/Attestation - Attestation I have personally seen and examined this patient.: Yes I have fully participated in the care of the patient.: Yes I have reviewed all pertinent clinical information, including history, physical exam and plan: Yes Notes (Text): 05/26/18 18:24 attending note; Patient seen and examined with resident. patient is still complaining of abdominal discomfort. Complaining of epigastric and right upper quadrant pain. Denies any diarrhea. Patient is an 82 year old male with a PMH of HTN, CAD s/p 2 stents, PAD s/p LE arterial stent, HLD who presents to the ED with one day h/o constant, tight lower abdominal pain. CT abdomen and pelvis revealed diffuse diverticulosis noted involving descending and sigmoid colon with minimal inflammatory stranding noted adjacent to the distal descending and proximal sigmoid colon compatible with mild acute diverticulitis. Patient admitted for diverticulitis. currently on IV Zosyn. Right upper quadrant pain; gallbladder ultrasound ordered. GI evaluation with Dr. ashby appreciated. Patient with possible IBS. Continue Bentyl as needed. Needs outpatient colonoscopy. upOn discharge the patient will follow-up with PMd Dr. Rosales.
[2018-05-24 07:44] LABS: BASO # 0.03 K/mm3 (0.0-2.0); BASO % 0.4 % (0.0-3.0); EOS # 0.2 (0.0-0.7); EOS % 2.5 % (1.5-5.0); GRAN # 4.96 (1.4-6.5); GRAN % 61.9 % (50.0-68.0); HEMOGLOBIN 13.2 g/dL (14.0-18.0); LYMPH % 24.5 % (22.0-35.0); MEAN CELL VOLUME 88.2 fl (80.0-105.0); MEAN CORPUSCULAR HEMOGLOBIN 29.5 pg (25.0-35.0); MEAN CORPUSCULAR HGB CONC 33.4 g/dl (31.0-37.0); MEAN PLATELET VOLUME 10.1 fl (7.0-11.0); MONO # 0.9 (0.1-0.6); MONO % 10.7 % (1.0-6.0); RBC 4.48 10^6/uL (3.5-6.1)
[2018-05-24 08:17] LABS: ALB/GLOB RATIO 1.3 (1.1-1.8); ALBUMIN 3.8 g/dL (3.0-4.8); ALT/SGPT 26 U/L (7-56); AST/SGOT 24 U/L (17-59); BLOOD UREA NITROGEN 8 mg/dL (7-21); CALCIUM 9.1 mg/dL (8.4-10.5); GFR NON-AFRICAN AMERICAN > 60
[2018-05-24] MEDS ORDERED: metroNIDAZOLE IV 500 mg/100 ml 500 MG/100 ML BAG IVPB SCH (09:00)
--- NOTE | 2018-05-24 12:10 | CON ---
DATE: 05/24/2018 CONSULTATION IN GASTROENTEROLOGY REQUESTING PHYSICIAN: Dr. Delgado. REASON FOR CONSULT: I have been asked to see this 82-year-old male with known coronary artery disease, hypertension, peripheral artery disease, who comes to the hospital with increasing lower abdominal pain for 2 days. He denies any fevers or chills. The patient has had chronic abdominal pain for several years. He had an upper endoscopy recently for epigastric pain, which revealed gastritis and esophagitis. CT scan of the abdomen and pelvis performed in the emergency room showed extensive diverticulosis throughout the colon with mild mural thickening of the junction of the descending colon and sigmoid colon. No fluid collection, abscess or perforation was seen. This morning, the patient states that his abdominal pain has resolved. He denies any nausea, vomiting, rectal bleeding, melena, fevers, chills or pneumaturia. He denies dysuria. The patient did have a colonoscopy several years ago, which revealed extensive diverticulosis. PAST MEDICAL HISTORY: Notable for coronary artery disease, status post coronary artery stents; peripheral arterial disease, status post lower extremity arterial stent; hypertension; hyperlipidemia. FAMILY HISTORY: Notable for father with coronary artery disease. SOCIAL HISTORY: Denies cigarette smoking or alcohol use. REVIEW OF SYSTEMS: Fourteen-point review of systems is notable for lower abdominal pain. MEDICATIONS AT HOME: Include Crestor, metoprolol, meclizine, lisinopril, Pepcid, aspirin, amlodipine and alprazolam. PHYSICAL EXAMINATION: GENERAL: Elderly male, lying in bed, in no acute distress. VITAL SIGNS: Reveal temperature of 98.3, blood pressure 141/84, heart rate of 72. HEENT: Reveals sclerae to be white. Conjunctivae pink. NECK: Supple. CHEST: Lungs are clear. HEART: Reveals a regular rate and rhythm. ABDOMEN: Obese, soft, nontender. No mass. EXTREMITIES: Show no edema. LABORATORY DATA: Reveal white blood cell count 8. On admission to the hospital, his white blood cell count was 14.3. Hemoglobin 13.2, platelet count 222,000. Chemistries reveal normal electrolytes. IMPRESSION: An 82-year-old male with chronic recurrent abdominal pain, now with lower abdominal pain with a CT scan of the abdomen and pelvis showing mild left-sided diverticulitis. The patient is improved this morning. He denies any nausea, vomiting, fevers, pneumaturia. He did have a colonoscopy several years ago. RECOMMENDATIONS: 1. We will advance to clear liquid diet. If tolerated, he can be advanced to a low-residue diet later today. 2. If the patient continues to improve, he can be discharged home on Cipro 500 b.i.d. and Flagyl 500 t.i.d. for 14 days as well as a low-residue diet. He can follow up with me in the office for an elective outpatient colonoscopy. Jeremiah Jiménez MD
--- NOTE | 2018-05-24 16:51 | US ---
Date of service: 05/24/2018 HISTORY: RUQ pain COMPARISON: None. TECHNIQUE: Sonographic evaluation of the abdomen. FINDINGS: LIVER: Measures 16.3 cm. Patent portal vein. Portal venous flow: Hepatopetal. Unremarkable echogenicity of the liver parenchyma. No mass. No intrahepatic bile duct dilatation. GALLBLADDER: Unremarkable. No gallstones. COMMON BILE DUCT: Measures 3.9 mm. No stones. No dilatation. PANCREAS: Unremarkable as visualized. No mass. No ductal dilatation. RIGHT KIDNEY: Measures 4.7 x 9.9cm. Normal echogenicity. No calculus, mass, or hydronephrosis. Upper pole simple cyst 4.9 x 5 cm. LEFT KIDNEY: Measures 5 x 6 x 11.0cm. 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 Finding in retrospect identified on recent CT scan. Normal echogenicity. No calculus, mass, or hydronephrosis. SPLEEN: Normal in size and contour. No mass. AORTA: Obscured by overlying bowel gas. Non diagnostic assessment of abdominal aorta. IVC: Unremarkable. OTHER FINDINGS: None. IMPRESSION: No acute findings related to/accounting for the clinical presentation. Additional benign and/or incidental findings described above.
--- NOTE | 2018-05-24 19:15 | CP.PCM.PN ---
Subjective - Date & Time of Evaluation Date of Evaluation: 05/24/18 Time of Evaluation: 18:00 - Subjective Subjective: Infectious Disease Follow Up: May 24, 2018 82 yo male with PMHx of HTN, CAD s/p 2 stents, PAD s/p LE arterial stent, HLD who presents to the ED complaining of 10/10 constant, tight lower abdominal pain which started yesterday. The pain does not radiate. Pt denies travel, or eating anything new. Pt reports nausea, but denies vomiting, diarrhea, constipation, fever or chills. Pt denies blood in the stool. Pt denies recent sick contacts. Pt reports using Pepto bismol which has been making his BM dark. Pt denies pain with urination or blood in the urine. CT scan showing mild segmental diverticulitis confined to sigmoid and adjacent descending colon. No collections, free air, or loculated air seen. Slight improvement to abdominal pain today. GI recommended advancing diet. Objective - Vital Signs/Intake and Output Vital Signs (last 24 hours): Temp Pulse Resp BP Pulse Ox 98.2 F 64 18 124/72 97 05/24/18 16:57 05/24/18 17:21 05/24/18 16:57 05/24/18 17:21 05/24/18 16:57 Intake and Output: 05/24/18 05/25/18 18:59 06:59 Output Total 360 Balance -360 - Medications Medications: Current Medications Amlodipine Besylate (Norvasc) 5 mg PO DAILY [facility] Last Admin: 05/24/18 12:16 Dose: 5 mg Aspirin (Ecotrin) 81 mg PO DAILY [facility] Last Admin: 05/24/18 17:21 Dose: 81 mg Atorvastatin Calcium (Lipitor) 40 mg PO DAILY [facility] Last Admin: 05/24/18 12:16 Dose: 40 mg Hydralazine HCl (Apresoline) 10 mg IVP Q6 PRN PRN Reason: Systolic Blood Pressure Sodium Chloride (Sodium Chloride 0.45%) 1,000 mls @ 100 mls/hr IV .Q10H [facility] Last Admin: 05/24/18 17:20 Dose: 100 mls/hr Piperacillin Sod/Tazobactam Sod (Zosyn 3.375 In Ns 100ml) 100 mls @ 200 mls/hr IVPB Q6 [facility]; Protocol Last Admin: 05/24/18 17:21 Dose: 200 mls/hr Lisinopril (Zestril) 20 mg PO DAILY [facility] Last Admin: 05/24/18 12:16 Dose: 20 mg Metoprolol Tartrate (Lopressor) 50 mg PO BID [facility] Last Admin: 05/24/18 17:21 Dose: 50 mg Morphine Sulfate (Morphine) 1 mg IVP Q4H PRN PRN Reason: Pain, moderate (4-7) Last Admin: 05/24/18 01:05 Dose: 1 mg Pantoprazole Sodium (Protonix Inj) 40 mg IVP DAILY [facility] Last Admin: 05/24/18 09:51 Dose: 40 mg - Labs Labs: 05/24/18 07:00 05/24/18 07:00 PT 12.3 SECONDS (9.4-12.5) 05/23/18 03:00 INR 1.07 05/23/18 03:00 APTT 26.9 Seconds (25.1-36.5) 05/23/18 03:00 - Constitutional Appears: Non-toxic, No Acute Distress, Chronically Ill - Head Exam Head Exam: ATRAUMATIC, NORMOCEPHALIC - Eye Exam Eye Exam: EOMI, PERRL Pupil Exam: NORMAL ACCOMODATION, PERRL - ENT Exam ENT Exam: Mucous Membranes Moist, Normal External Ear Exam, TM's Normal Bilaterally - Neck Exam Neck Exam: Full ROM, Normal Inspection - Respiratory Exam Respiratory Exam: Clear to Ausculation Bilateral, NORMAL BREATHING PATTERN. absent: Rales, Rhonchi, Wheezes - Cardiovascular Exam Cardiovascular Exam: REGULAR RHYTHM, RRR, +S1, +S2 - GI/Abdominal Exam GI & Abdominal Exam: Soft, Normal Bowel Sounds. absent: Distended, Tenderness - Extremities Exam Extremities Exam: Full ROM, Normal Inspection - Neurological Exam Neurological Exam: Alert, Awake, Oriented x3. absent: CN II-XII Intact - Psychiatric Exam Psychiatric exam: Normal Affect, Normal Mood - Skin Skin Exam: Intact, Normal Color Assessment and Plan - Assessment and Plan (Free Text) Assessment: 82 yo male with PMH of HTN, CAD s/p 2 stents, PAD s/p LE arterial stent, HLD who presents to the ED complaining of 10/10 constant, tight lower abdominal pain which started yesterday. CT scan showing mild segmental diverticulitis with perforation, collections, or free air. Patient started on Zosyn for antibiotic therapy. Can continue on Zosyn for the time being for antibiotic coverage while in hospital. Supportive care. Would consider use of Keflex 500 mg TID and Flagyl 500 mg TID for 10 days more of treatment on discharge. Thank you for allowing me to participate in the care of the patient, we will follow with you.
[2018-05-25] MEDS: Morphine 2 mg/ml ISec IVP PRN (01:25)
[2018-05-25] MEDS ORDERED: Morphine 2 mg/ml ISec IVP STA (02:14)
[2018-05-25] MEDS: Piperacillin/Tazobact 3.375 gm 100 ML IVPB SCH ×4 (05:24→23:23)
--- NOTE | 2018-05-25 06:23 | CP.PCM.PN ---
<Bossman Ricks - Last Filed: 05/25/18 14:18> Subjective - Date & Time of Evaluation Date of Evaluation: 05/25/18 Time of Evaluation: 06:20 - Subjective Subjective: Bossman Ricks DO PGY-1, Internal Medicine Resident. Hospitalist Progress Note Patient seen and examined at bedside. Patient is resting in bed, awake and oriented. Patient could not tolerate diet for dinner last night, he developed abdominal discomfort and bloating, was given pain meds by night team. Patient denied fever, chills, palpitations, headache, N/V/D Objective - Vital Signs/Intake and Output Vital Signs (last 24 hours): Temp Pulse Resp BP Pulse Ox 98.2 F 64 18 124/72 97 05/24/18 16:57 05/24/18 17:21 05/24/18 16:57 05/24/18 17:21 05/24/18 16:57 Intake and Output: 05/24/18 05/25/18 18:59 06:59 Intake Total 2140 Output Total 1810 Balance 330 - Medications Medications: Current Medications Amlodipine Besylate (Norvasc) 5 mg PO DAILY [facility] Last Admin: 05/24/18 12:16 Dose: 5 mg Aspirin (Ecotrin) 81 mg PO DAILY [facility] Last Admin: 05/24/18 17:21 Dose: 81 mg Atorvastatin Calcium (Lipitor) 40 mg PO DAILY [facility] Last Admin: 05/24/18 12:16 Dose: 40 mg Hydralazine HCl (Apresoline) 10 mg IVP Q6 PRN PRN Reason: Systolic Blood Pressure Sodium Chloride (Sodium Chloride 0.45%) 1,000 mls @ 100 mls/hr IV .Q10H [facility] Last Admin: 05/24/18 17:20 Dose: 100 mls/hr Piperacillin Sod/Tazobactam Sod (Zosyn 3.375 In Ns 100ml) 100 mls @ 200 mls/hr IVPB Q6 [facility]; Protocol Last Admin: 05/25/18 05:24 Dose: 200 mls/hr Lisinopril (Zestril) 20 mg PO DAILY [facility] Last Admin: 05/24/18 12:16 Dose: 20 mg Metoprolol Tartrate (Lopressor) 50 mg PO BID [facility] Last Admin: 05/24/18 17:21 Dose: 50 mg Morphine Sulfate (Morphine) 1 mg IVP Q4H PRN PRN Reason: Pain, moderate (4-7) Last Admin: 05/25/18 01:25 Dose: 1 mg Pantoprazole Sodium (Protonix Inj) 40 mg IVP DAILY [facility] Last Admin: 05/24/18 09:51 Dose: 40 mg - Labs Labs: 05/24/18 07:00 05/24/18 07:00 PT 12.3 SECONDS (9.4-12.5) 05/23/18 03:00 INR 1.07 05/23/18 03:00 APTT 26.9 Seconds (25.1-36.5) 05/23/18 03:00 - Additional Findings Additional findings: - Constitutional Appears: Well, No Acute Distress - Head Exam Head Exam: ATRAUMATIC, NORMOCEPHALIC - Eye Exam Eye Exam: EOMI, Normal appearance Pupil Exam: NORMAL ACCOMODATION - ENT Exam ENT Exam: Mucous Membranes Moist, Normal Oropharynx - Neck Exam Neck Exam: Full ROM, Normal Inspection - Respiratory Exam Respiratory Exam: Clear to Ausculation Bilateral, NORMAL BREATHING PATTERN - Cardiovascular Exam Cardiovascular Exam: REGULAR RHYTHM, +S1, +S2. absent: Murmur - GI/Abdominal Exam GI & Abdominal Exam: Soft, obese, regular Bowel Sounds. mild diffuse tender to palpate - Extremities Exam Extremities Exam: Full ROM, Normal Capillary Refill, Normal Inspection. absent: Joint Swelling, Pedal Edema - Back Exam Back Exam: NORMAL INSPECTION - Neurological Exam Neurological Exam: Alert, Awake, CN II-XII Intact, Normal Gait, Oriented x3 - Psychiatric Exam Psychiatric exam: Normal Affect, Normal Mood - Skin Skin Exam: Dry, Intact, Normal Color, Warm Assessment and Plan - Assessment and Plan (Free Text) Assessment: Pt is an 82yo male with a PMH of HTN, CAD s/p 2 stents, PAD s/p LE arterial stent, HLD who presents to the ED with one day h/o constant, tight lower abdominal pain with no N/V/D. CT A/P revealed diffuse diverticulosis noted involving descending and sigmoid colon with minimal inflammatory stranding noted adjacent to the distal descending and proximal sigmoid colon compatible with mild acute diverticulitis. Patient admitted for diverticulitis, clinically improving Plan: Intractable abdominal pain, likely acute diverticulitis clinically improving, abdminal pain resolving, afebrile, WBC trending down continue zosyn as per ID consult continue 1/2 normal saline 100ml/hr morphine 1mg IVP Q4 PRN CT A/P: Enteritis. Infectious and inflammatory etiologies are considered. There is diffuse diverticulosis noted involving descending and sigmoid colon. There is minimal inflammatory stranding noted adjacent to the distal descending and proximal sigmoid colon compatible with mild acute diverticulitis. Dr Ashby GI consulted: advance diet to clear liquid then low-residue if tolerated, discharge home on cipro 500 bid and flagel 500 tid both x14 days. f/u outpatient for colonscopy blood culture negative to date FOBT. stool cultures Abd U/S: no acute findings Patient could not tolerate diet for dinner last night, he developed abdominal discomfort and bloating, given pain med by night team continue clear liquid diet HTN continue home amlodipine, metoprolol, lisinopril HLD continue crestor Case reviewed and plan discussed with Dr Cruz <Felton Cruz - Last Filed: 05/26/18 18:29> Objective - Vital Signs/Intake and Output Vital Signs (last 24 hours): Temp Pulse Resp BP Pulse Ox 97.7 F 65 20 159/95 H 95 05/26/18 06:00 05/26/18 10:36 05/26/18 06:00 05/26/18 10:36 05/26/18 06:00 Intake and Output: 05/26/18 05/26/18 06:59 18:59 Intake Total 3520 Output Total 800 Balance 2720 - Labs Labs: 05/26/18 07:15 05/26/18 07:15 PT 12.3 SECONDS (9.4-12.5) 05/23/18 03:00 INR 1.07 05/23/18 03:00 APTT 26.9 Seconds (25.1-36.5) 05/23/18 03:00 Attending/Attestation - Attestation I have personally seen and examined this patient.: Yes I have fully participated in the care of the patient.: Yes I have reviewed all pertinent clinical information, including history, physical exam and plan: Yes Notes (Text): 05/26/18 18:27 attending note; Patient seen and examined with resident. patient is still complaining of abdominal discomfort. Patient had abdominal discomfort yesterday night. Did not tolerating low-residue diet. Currently on liquid diet. monitor for abdominal pain. Patient is an 82 year old male with a PMH of HTN, CAD s/p 2 stents, PAD s/p LE arterial stent, HLD who presents to the ED with one day h/o constant, tight lower abdominal pain. CT abdomen and pelvis revealed diffuse diverticulosis noted involving descending and sigmoid colon with minimal inflammatory stranding noted adjacent to the distal descending and proximal sigmoid colon compatible with mild acute diverticulitis. Patient admitted for diverticulitis. currently on IV Zosyn. Right upper quadrant pain; Abdominal ultrasound is negative for gallstones. GI evaluation with Dr. ashby appreciated. Patient with possible IBS. Continue Bentyl as needed. constipation; will start MiraLAX. Needs outpatient colonoscopy. upOn discharge the patient will follow-up with PMd Dr. Rosales. 05/26/18 18:28
[2018-05-25 07:23] LABS: BASO # 0.02 K/mm3 (0.0-2.0); BASO % 0.2 % (0.0-3.0); EOS # 0.2 (0.0-0.7); EOS % 1.6 % (1.5-5.0); GRAN # 6.15 (1.4-6.5); GRAN % 67.3 % (50.0-68.0); HEMOGLOBIN 13.6 g/dL (14.0-18.0); LYMPH % 22.2 % (22.0-35.0); MEAN CELL VOLUME 88.3 fl (80.0-105.0); MEAN CORPUSCULAR HEMOGLOBIN 29.4 pg (25.0-35.0); MEAN CORPUSCULAR HGB CONC 33.3 g/dl (31.0-37.0); MEAN PLATELET VOLUME 10.2 fl (7.0-11.0); MONO # 0.8 (0.1-0.6); MONO % 8.7 % (1.0-6.0); RBC 4.63 10^6/uL (3.5-6.1); RED CELL DISTRIBUTION WIDTH 13.1 % (11.5-14.5); WHITE BLOOD COUNT 9.2 10^3/ul (4.5-11.0)
[2018-05-25 07:35] LABS: ALB/GLOB RATIO 1.4 (1.1-1.8); ALT/SGPT 26 U/L (7-56); AST/SGOT 27 U/L (17-59); BLOOD UREA NITROGEN 9 mg/dL (7-21); CALCIUM 9.3 mg/dL (8.4-10.5); GFR NON-AFRICAN AMERICAN > 60
[2018-05-25] MEDS ORDERED: Alum-Mag Hydrox-Simethicone Susp (30 mL) PO ONE (11:34)
[2018-05-25] MEDS ORDERED: ROSUVASTATIN 10MG PO SCH (12:15)
[2018-05-25] MEDS ORDERED: ROSUVASTATIN 10 MG PO SCH (17:00)
--- NOTE | 2018-05-25 17:22 | CP.PCM.PN ---
Subjective - Date & Time of Evaluation Date of Evaluation: 05/25/18 Time of Evaluation: 16:30 - Subjective Subjective: Infectious Disease Follow Up: May 25, 2018 82 yo male with PMHx of HTN, CAD s/p 2 stents, PAD s/p LE arterial stent, HLD who presents to the ED complaining of 10/10 constant, tight lower abdominal pain which started yesterday. The pain does not radiate. Pt denies travel, or eating anything new. Pt reports nausea, but denies vomiting, diarrhea, constipation, fever or chills. Pt denies blood in the stool. Pt denies recent sick contacts. Pt reports using Pepto bismol which has been making his BM dark. Pt denies pain with urination or blood in the urine. CT scan showing mild segmental diverticulitis confined to sigmoid and adjacent descending colon. No collections, free air, or loculated air seen. Slight improvement to abdominal pain today. GI recommended advancing diet. The patient could not tolerate dinner last night. Objective - Vital Signs/Intake and Output Vital Signs (last 24 hours): Temp Pulse Resp BP Pulse Ox 98.4 F 53 L 18 136/74 99 05/25/18 16:03 05/25/18 16:03 05/25/18 16:03 05/25/18 16:03 05/25/18 16:03 Intake and Output: 05/25/18 05/25/18 06:59 18:59 Intake Total 1525 Balance 1525 - Medications Medications: Current Medications Alprazolam (Xanax) 0.25 mg PO HS COUNTS INCLUDE 234 BEDS AT THE [facility]; Protocol Stop: 06/01/18 22:01 Amlodipine Besylate (Norvasc) 5 mg PO DAILY COUNTS INCLUDE 234 BEDS AT THE [facility] Last Admin: 05/24/18 12:16 Dose: 5 mg Aspirin (Ecotrin) 81 mg PO DAILY COUNTS [facility]CLUDE 234 BEDS AT THE [facility] Last Admin: 05/25/18 10:27 Dose: 81 mg Dicyclomine HCl (Bentyl) 10 mg PO TID COUNTS INCLUDE 234 BEDS AT THE [facility] Last Admin: 05/25/18 13:01 Dose: 10 mg Home Med (Home Med) 1 unit PO DIN COUNTS INCLUDE 234 BEDS AT THE [facility] Hydralazine HCl (Apresoline) 10 mg IVP Q6 PRN PRN Reason: Systolic Blood Pressure Sodium Chloride (Sodium Chloride 0.45%) 1,000 mls @ 100 mls/hr IV .Q10H COUNTS [facility]CLUDE 234 BEDS AT THE [facility] Last Admin: 05/24/18 17:20 Dose: 100 mls/hr Piperacillin Sod/Tazobactam Sod (Zosyn 3.375 In Ns 100ml) 100 mls @ 200 mls/hr IVPB Q6 COUNTS [facility]CLUDE 234 BEDS AT [facility]; Protocol Last Admin: 05/25/18 13:01 Dose: 200 mls/hr Lisinopril (Zestril) 20 mg PO DAILY COUNTS [facility]CLUDE 234 BEDS AT [facility] Last Admin: 05/24/18 12:16 Dose: 20 mg Metoprolol Tartrate (Lopressor) 50 mg PO BID COUNTS [facility]CLUDE 234 BEDS AT [facility] Last Admin: 05/24/18 17:21 Dose: 50 mg Morphine Sulfate (Morphine) 1 mg IVP Q4H PRN PRN Reason: Pain, moderate (4-7) Last Admin: 05/25/18 01:25 Dose: 1 mg Pantoprazole Sodium (Protonix Inj) 40 mg IVP DAILY COUNTS [facility]CLUDE 234 BEDS AT [facility] Last Admin: 05/25/18 10:27 Dose: 40 mg - Labs Labs: 05/25/18 06:30 05/25/18 06:30 PT 12.3 SECONDS (9.4-12.5) 05/23/18 03:00 INR 1.07 05/23/18 03:00 APTT 26.9 Seconds (25.1-36.5) 05/23/18 03:00 - Constitutional Appears: Non-toxic, No Acute Distress, Chronically Ill - Head Exam Head Exam: ATRAUMATIC, NORMOCEPHALIC - Eye Exam Eye Exam: EOMI, PERRL Pupil Exam: NORMAL ACCOMODATION, PERRL - ENT Exam ENT Exam: Mucous Membranes Moist, Normal External Ear Exam, TM's Normal Bilatera lly - Neck Exam Neck Exam: Full ROM, Normal Inspection - Respiratory Exam Respiratory Exam: Clear to Ausculation Bilateral, NORMAL BREATHING PATTERN. absent: Rales, Rhonchi, Wheezes - Cardiovascular Exam Cardiovascular Exam: REGULAR RHYTHM, RRR, +S1, +S2 - GI/Abdominal Exam GI & Abdominal Exam: Soft, Normal Bowel Sounds. absent: Distended, Tenderness - Extremities Exam Extremities Exam: Full ROM, Normal Inspection - Neurological Exam Neurological Exam: Alert, Awake, CN II-XII Intact, Oriented x3 - Psychiatric Exam Psychiatric exam: Normal Affect, Normal Mood - Skin Skin Exam: Intact, Normal Color Assessment and Plan - Assessment and Plan (Free Text) Assessment: 82 yo male with PMH of HTN, CAD s/p 2 stents, PAD s/p LE arterial stent, HLD who presents to the ED complaining of 10/10 constant, tight lower abdominal pain which started yesterday. CT scan showing mild segmental diverticulitis with perforation, collections, or free air. Patient started on Zosyn for antibiotic therapy. Can continue on Zosyn for the time being for antibiotic coverage while in hospital. Noted that the patient was unable to tolerate dinner last night developing bloating and abdominal pain. Supportive care. Would consider use of Keflex 500 mg TID and Flagyl 500 mg TID for 10 days more of treatment when ready for discharge. Thank you for allowing me to participate in the care of the patient, we will follow with you.
[2018-05-25] MEDS ORDERED: POLYETHYLENE GLYCOL 3350 17 GM/Dose PACKET PO SCH (18:00)
[2018-05-25] MEDS: Sodium Chloride 0.45% 1,000 ML IV SCH (18:21)
[2018-05-25] MEDS ORDERED: Home Med 1 UNIT PO SCH (22:00)
--- NOTE | 2018-05-26 06:17 | CP.PCM.PN ---
Subjective - Date & Time of Evaluation Date of Evaluation: 05/26/18 Time of Evaluation: 06:17 Objective - Vital Signs/Intake and Output Vital Signs (last 24 hours): Temp Pulse Resp BP Pulse Ox 98.4 F 53 L 18 136/74 99 05/25/18 16:03 05/25/18 18:19 05/25/18 16:03 05/25/18 18:19 05/25/18 16:03 Intake and Output: 05/25/18 05/26/18 18:59 06:59 Intake Total 2120 Balance 2120 - Medications Medications: Current Medications Alprazolam (Xanax) 0.25 mg PO HS [facility]; Protocol Stop: 06/01/18 22:01 Last Admin: 05/25/18 21:15 Dose: 0.25 mg Amlodipine Besylate (Norvasc) 5 mg PO DAILY [facility] Last Admin: 05/24/18 12:16 Dose: 5 mg Aspirin (Ecotrin) 81 mg PO DAILY [facility] Last Admin: 05/25/18 10:27 Dose: 81 mg Dicyclomine HCl (Bentyl) 10 mg PO TID [facility] Last Admin: 05/25/18 18:19 Dose: 10 mg Docusate Sodium (Colace) 100 mg PO BID [facility] Last Admin: 05/25/18 18:19 Dose: 100 mg Home Med (Home Med) 1 unit PO DIN [facility] Last Admin: 05/25/18 18:21 Dose: 1 unit Hydralazine HCl (Apresoline) 10 mg IVP Q6 PRN PRN Reason: Systolic Blood Pressure Sodium Chloride (Sodium Chloride 0.45%) 1,000 mls @ 100 mls/hr IV .Q10H [facility] Last Admin: 05/25/18 18:21 Dose: 100 mls/hr Piperacillin Sod/Tazobactam Sod (Zosyn 3.375 In Ns 100ml) 100 mls @ 200 mls/hr IVPB Q6 [facility]; Protocol Last Admin: 05/25/18 23:23 Dose: 200 mls/hr Lisinopril (Zestril) 20 mg PO DAILY [facility] Last Admin: 05/24/18 12:16 Dose: 20 mg Metoprolol Tartrate (Lopressor) 50 mg PO BID [facility] Last Admin: 05/25/18 18:19 Dose: 50 mg Morphine Sulfate (Morphine) 1 mg IVP Q4H PRN PRN Reason: Pain, moderate (4-7) Last Admin: 05/25/18 01:25 Dose: 1 mg Pantoprazole Sodium (Protonix Inj) 40 mg IVP DAILY [facility] Last Admin: 05/25/18 10:27 Dose: 40 mg Polyethylene Glycol (Miralax) 17 gm PO TID [facility] - Labs Labs: 05/25/18 06:30 05/25/18 06:30 PT 12.3 SECONDS (9.4-12.5) 05/23/18 03:00 INR 1.07 05/23/18 03:00 APTT 26.9 Seconds (25.1-36.5) 05/23/18 03:00
[2018-05-26] MEDS: Piperacillin/Tazobact 3.375 gm 100 ML IVPB SCH ×2 (06:36→12:02)
[2018-05-26 07:41] LABS: BASO # 0.03 K/mm3 (0.0-2.0); BASO % 0.4 % (0.0-3.0); EOS # 0.3 (0.0-0.7); EOS % 4.3 % (1.5-5.0); GRAN # 4.4 (1.4-6.5); HEMOGLOBIN 12.3 g/dL (14.0-18.0); LYMPH # 1.6 (1.2-3.4); LYMPH % 23.7 % (22.0-35.0); MEAN CELL VOLUME 89.2 fl (80.0-105.0); MEAN CORPUSCULAR HEMOGLOBIN 28.9 pg (25.0-35.0); MEAN CORPUSCULAR HGB CONC 32.4 g/dl (31.0-37.0); MEAN PLATELET VOLUME 10.2 fl (7.0-11.0); MONO # 0.5 (0.1-0.6); MONO % 6.6 % (1.0-6.0); RBC 4.26 10^6/uL (3.5-6.1); RED CELL DISTRIBUTION WIDTH 13.1 % (11.5-14.5); WHITE BLOOD COUNT 6.8 10^3/ul (4.5-11.0)
[2018-05-26 07:54] LABS: ALB/GLOB RATIO 1.3 (1.1-1.8); ALBUMIN 3.5 g/dL (3.0-4.8); ALT/SGPT 23 U/L (7-56); AST/SGOT 26 U/L (17-59); BLOOD UREA NITROGEN 6 mg/dL (7-21); CALCIUM 8.9 mg/dL (8.4-10.5); GFR NON-AFRICAN AMERICAN > 60
[2018-05-26 08:45] VITALS: BP 159/95; PULSE 65; RESP 20; TEMP 97.7; O2SAT 95
[2018-05-26] MEDS ORDERED: POLYETHYLENE GLYCOL 3350 17 GM/Dose PACKET PO SCH (10:00)
--- NOTE | 2018-05-26 12:24 | PN ---
DATE: 05/26/2018 SUBJECTIVE: The patient currently denies any abdominal pain. He states he has not had a bowel movement in several days. The patient developed severe diffuse abdominal pain two nights ago requiring morphine sulfate injection. He denies any nausea, vomiting. He denies any fevers, chills. He feels better this morning. PHYSICAL EXAMINATION: VITAL SIGNS: Reveal temperature of 97.7, blood pressure 159/95, heart rate 65. HEENT: Reveals sclerae to be white. Conjunctivae pink. NECK: Supple. CHEST: Lungs are clear. HEART: Reveals regular rate and rhythm. ABDOMEN: Soft, obese, nontender. EXTREMITIES: Show no edema. LABORATORY DATA: Reveal white blood cell count 6.8, hemoglobin 12.3. Chemistries reveal normal electrolytes. IMPRESSION: 1. Diverticulitis of the descending colon sigmoid junction, clinically improving. 2. Chronic recurrent abdominal pain with constipation. 3. Known coronary artery disease. 4. Known peripheral arterial disease. RECOMMENDATIONS: 1. We will advance to a low-residue diet. 2. Start MiraLax 17 g three times a day. 3. Bentyl as needed for abdominal pain. The patient is stable from a GI standpoint and can be discharged home on Cipro 500 mg p.o. b.i.d. and Flagyl 500 mg p.o. t.i.d. Jeremiah Jiménez MD
--- NOTE | 2018-05-26 13:34 | CP.PCM.DIS ---
<Bossman Ricks - Last Filed: 05/26/18 13:39> Provider - Provider Date of Admission: 05/23/18 05:16 Attending physician: Felton Cruz MD Primary care physician: Juan Luo MD Consults: GI Time Spent in preparation of Discharge (in minutes): 45 Hospital Course - Lab Results Lab Results: Micro Results 05/23/18 05:45 Blood-Venous Blood Culture - Preliminary NO GROWTH AFTER 3 DAYS 05/23/18 05:30 Blood-Venous Blood Culture - Preliminary NO GROWTH AFTER 3 DAYS Most Recent Lab Values WBC 6.8 10^3/ul (4.5-11.0) D 05/26/18 07:15 RBC 4.26 10^6/uL (3.5-6.1) 05/26/18 07:15 Hgb 12.3 g/dL (14.0-18.0) L 05/26/18 07:15 Hct 38.0 % (42.0-52.0) L 05/26/18 07:15 MCV 89.2 fl (80.0-105.0) 05/26/18 07:15 MCH 28.9 pg (25.0-35.0) 05/26/18 07:15 MCHC 32.4 g/dl (31.0-37.0) 05/26/18 07:15 RDW 13.1 % (11.5-14.5) 05/26/18 07:15 Plt Count 213 10^3/uL (120.0-450.0) 05/26/18 07:15 MPV 10.2 fl (7.0-11.0) 05/26/18 07:15 Gran % 65.0 % (50.0-68.0) 05/26/18 07:15 Lymph % (Auto) 23.7 % (22.0-35.0) 05/26/18 07:15 [place] % (Auto) 6.6 % (1.0-6.0) H 05/26/18 07:15 Eos % (Auto) 4.3 % (1.5-5.0) 05/26/18 07:15 Baso % (Auto) 0.4 % (0.0-3.0) 05/26/18 07:15 Gran # 4.40 (1.4-6.5) 05/26/18 07:15 Lymph # (Auto) 1.6 (1.2-3.4) 05/26/18 07:15 [place] # (Auto) 0.5 (0.1-0.6) 05/26/18 07:15 Eos # (Auto) 0.3 (0.0-0.7) 05/26/18 07:15 Baso # (Auto) 0.03 K/mm3 (0.0-2.0) 05/26/18 07:15 Differential Comment Cancelled 05/25/18 06:30 PT 12.3 SECONDS (9.4-12.5) 05/23/18 03:00 INR 1.07 05/23/18 03:00 APTT 26.9 Seconds (25.1-36.5) 05/23/18 03:00 Sodium 137 mmol/L (132-148) 05/26/18 07:15 Potassium 4.3 mmol/L (3.6-5.0) 05/26/18 07:15 Chloride 100 mmol/L (98-107) 05/26/18 07:15 Carbon Dioxide 30 mmol/L (21-33) 05/26/18 07:15 Anion Gap 11 (10-20) 05/26/18 07:15 BUN 6 mg/dL (7-21) L 05/26/18 07:15 Creatinine 1.0 mg/dl (0.8-1.5) 05/26/18 07:15 Est GFR ( Amer) > 60 05/26/18 07:15 Est GFR (Non-Af Amer) > 60 05/26/18 07:15 Random Glucose 94 mg/dL (70-110) 05/26/18 07:15 Calcium 8.9 mg/dL (8.4-10.5) 05/26/18 07:15 Total Bilirubin 0.5 mg/dL (0.2-1.3) 05/26/18 07:15 AST 26 U/L (17-59) 05/26/18 07:15 ALT 23 U/L (7-56) 05/26/18 07:15 Alkaline Phosphatase 40 U/L (38-126) 05/26/18 07:15 Troponin I < 0.01 ng/mL 05/23/18 03:00 Total Protein 6.2 g/dL (5.8-8.3) 05/26/18 07:15 Albumin 3.5 g/dL (3.0-4.8) 05/26/18 07:15 Globulin 2.7 gm/dL 05/26/18 07:15 Albumin/Globulin Ratio 1.3 (1.1-1.8) 05/26/18 07:15 Lipase 113 U/L (23-300) 05/23/18 03:00 Urine Color Yellow (YELLOW) 05/23/18 03:45 Urine Appearance Clear (CLEAR) 05/23/18 03:45 Urine pH 6.0 (4.7-8.0) 05/23/18 03:45 Ur Specific [place] 1.010 (1.005-1.035) 05/23/18 03:45 Urine Protein Negative mg/dL (<30 mg/dL) 05/23/18 03:45 Urine Glucose (UA) Negative mg/dL (NEGATIVE) 05/23/18 03:45 Urine Ketones Negative mg/dL (NEGATIVE) 05/23/18 03:45 Urine Blood Negative (NEGATIVE) 05/23/18 03:45 Urine Nitrate Negative (NEGATIVE) 05/23/18 03:45 Urine Bilirubin Negative (NEGATIVE) 05/23/18 03:45 Urine Urobilinogen 0.2 E.U./dL (<1 E.U./dL) 05/23/18 03:45 Ur Leukocyte Esterase Negative Main/uL (NEGATIVE) 05/23/18 03:45 - Hospital Course Hospital Course: Patient is an 82 year old male with a PMH of HTN, CAD s/p 2 stents, PAD s/p LE arterial stent, HLD who presents to the ED with one day h/o constant, tight lower abdominal pain with no N/V/D. CT A/P revealed diffuse diverticulosis noted involving descending and sigmoid colon with minimal inflammatory stranding noted adjacent to the distal descending and proximal sigmoid colon compatible with mild acute diverticulitis. Patient admitted for diverticulitis. WBC elevated. Patient received IV fluids, antibiotic, pain medication. Blood culture negative. Patient felt improving of his symptoms, diet was advanced which he tolerated. GI consulted and recommended completing IV antibiotic course then oral antibiotic as an outpatient and follow up for colonscopy in Dr Asbhy's office. Abdominal US showed no acute findings. Patient continue home amlodipine, metoprolol, lisinopril for his HTN. Patient clinically optimized, pain improved, afebrile, tolerating soft diet. He was stable to be discharged today. On discharge: - Please follow up with a primary care physician Dr Luo within 3-5 days after discharge - Please follow up with river tester Dr Ashby within 7-14 days of discharge for future outpatient colonscopy - Please take antibiotics cipro 500 twice a day and flagyl 500 tree times a day both for 14 days. Also take Miralax as prescribed - Please avoid constipation as it may trigger diverticulitis - Please resume your medications as prescribed. - Please follow a heart healthy and carbohydrate consistent diet. high fiber diet - Please return to the nearest emergency room if symptoms return Discharge Exam - Head Exam Head Exam: ATRAUMATIC, NORMOCEPHALIC - Eye Exam Eye Exam: Normal appearance, PERRL Pupil Exam: NORMAL ACCOMODATION - ENT Exam ENT Exam: Mucous Membranes Moist, Normal Oropharynx - Neck Exam Neck exam: Full Rom, Normal Inspection - Respiratory Exam Respiratory Exam: Clear to PA & Lateral, NORMAL BREATHING PATTERN - Cardiovascular Exam Cardiovascular Exam: REGULAR RHYTHM, +S1, +S2 - GI/Abdominal Exam GI & Abdominal Exam: Normal Bowel Sounds, Soft - Extremities Exam Extremities exam: normal capillary refill, pedal pulses present - Back Exam Back exam: FULL ROM, NORMAL INSPECTION - Neurological Exam Neurological exam: Alert, CN II-XII Intact, Normal Gait, Oriented x3, Reflexes Normal - Psychiatric Exam Psychiatric exam: Normal Affect, Normal Mood - Skin Skin Exam: Dry, Intact, Normal Color, Warm Discharge Plan - Discharge Medications Prescriptions: Ciprofloxacin [Cipro] 500 mg PO BID #14 tab metroNIDAZOLE [Flagyl] 500 mg PO TID #21 tab Polyethylene Glycol 3350 [Miralax] 1 packet PO TID #42 ml - Follow Up Plan Condition: STABLE Disposition: HOME/ ROUTINE Instructions: Low Fiber Diet, Constipation, Adult (DC), Diverticulitis (DC), Diverticulitis Additional Instructions: - Please follow up with a primary care physician Dr Luo within 3-5 days after discharge - Please follow up with river tester Dr Ashby within 7-14 days of discharge for future outpatient colonscopy - Please take antibiotics cipro 500 twice a day and flagel 500 tree times a day both for 14 days - Please avoid constipation as it may trigger diverticulitis - Please resume your medications as prescribed. - Please follow a heart healthy and carbohydrate consistent diet. high fiber diet - Please return to the nearest emergency room if symptoms return Referrals: Puja RAMSEY,Wilder Mena MD [Staff Provider] - Jeremiah Ashby MD [Staff Provider] - <Felton Cruz - Last Filed: 05/26/18 18:31> Provider - Provider Date of Admission: 05/23/18 05:16 Attending physician: Felton Cruz MD Primary care physician: Juan Luo MD Hospital Course - Lab Results Lab Results: Micro Results 05/23/18 05:45 Blood-Venous Blood Culture - Preliminary NO GROWTH AFTER 3 DAYS 05/23/18 05:30 Blood-Venous Blood Culture - Preliminary NO GROWTH AFTER 3 DAYS Most Recent Lab Values WBC 6.8 10^3/ul (4.5-11.0) D 05/26/18 07:15 RBC 4.26 10^6/uL (3.5-6.1) 05/26/18 07:15 Hgb 12.3 g/dL (14.0-18.0) L 05/26/18 07:15 Hct 38.0 % (42.0-52.0) L 05/26/18 07:15 MCV 89.2 fl (80.0-105.0) 05/26/18 07:15 MCH 28.9 pg (25.0-35.0) 05/26/18 07:15 MCHC 32.4 g/dl (31.0-37.0) 05/26/18 07:15 RDW 13.1 % (11.5-14.5) 05/26/18 07:15 Plt Count 213 10^3/uL (120.0-450.0) 05/26/18 07:15 MPV 10.2 fl (7.0-11.0) 05/26/18 07:15 Gran % 65.0 % (50.0-68.0) 05/26/18 07:15 Lymph % (Auto) 23.7 % (22.0-35.0) 05/26/18 07:15 [place] % (Auto) 6.6 % (1.0-6.0) H 05/26/18 07:15 Eos % (Auto) 4.3 % (1.5-5.0) 05/26/18 07:15 Baso % (Auto) 0.4 % (0.0-3.0) 05/26/18 07:15 Gran # 4.40 (1.4-6.5) 05/26/18 07:15 Lymph # (Auto) 1.6 (1.2-3.4) 05/26/18 07:15 [place] # (Auto) 0.5 (0.1-0.6) 05/26/18 07:15 Eos # (Auto) 0.3 (0.0-0.7) 05/26/18 07:15 Baso # (Auto) 0.03 K/mm3 (0.0-2.0) 05/26/18 07:15 Differential Comment Cancelled 05/25/18 06:30 PT 12.3 SECONDS (9.4-12.5) 05/23/18 03:00 INR 1.07 05/23/18 03:00 APTT 26.9 Seconds (25.1-36.5) 05/23/18 03:00 Sodium 137 mmol/L (132-148) 05/26/18 07:15 Potassium 4.3 mmol/L (3.6-5.0) 05/26/18 07:15 Chloride 100 mmol/L (98-107) 05/26/18 07:15 Carbon Dioxide 30 mmol/L (21-33) 05/26/18 07:15 Anion Gap 11 (10-20) 05/26/18 07:15 BUN 6 mg/dL (7-21) L 05/26/18 07:15 Creatinine 1.0 mg/dl (0.8-1.5) 05/26/18 07:15 Est GFR ( Amer) > 60 05/26/18 07:15 Est GFR (Non-Af Amer) > 60 05/26/18 07:15 Random Glucose 94 mg/dL (70-110) 05/26/18 07:15 Calcium 8.9 mg/dL (8.4-10.5) 05/26/18 07:15 Total Bilirubin 0.5 mg/dL (0.2-1.3) 05/26/18 07:15 AST 26 U/L (17-59) 05/26/18 07:15 ALT 23 U/L (7-56) 05/26/18 07:15 Alkaline Phosphatase 40 U/L (38-126) 05/26/18 07:15 Troponin I < 0.01 ng/mL 05/23/18 03:00 Total Protein 6.2 g/dL (5.8-8.3) 05/26/18 07:15 Albumin 3.5 g/dL (3.0-4.8) 05/26/18 07:15 Globulin 2.7 gm/dL 05/26/18 07:15 Albumin/Globulin Ratio 1.3 (1.1-1.8) 05/26/18 07:15 Lipase 113 U/L (23-300) 05/23/18 03:00 Urine Color Yellow (YELLOW) 05/23/18 03:45 Urine Appearance Clear (CLEAR) 05/23/18 03:45 Urine pH 6.0 (4.7-8.0) 05/23/18 03:45 Ur Specific [place] 1.010 (1.005-1.035) 05/23/18 03:45 Urine Protein Negative mg/dL (<30 mg/dL) 05/23/18 03:45 Urine Glucose (UA) Negative mg/dL (NEGATIVE) 05/23/18 03:45 Urine Ketones Negative mg/dL (NEGATIVE) 05/23/18 03:45 Urine Blood Negative (NEGATIVE) 05/23/18 03:45 Urine Nitrate Negative (NEGATIVE) 05/23/18 03:45 Urine Bilirubin Negative (NEGATIVE) 05/23/18 03:45 Urine Urobilinogen 0.2 E.U./dL (<1 E.U./dL) 05/23/18 03:45 Ur Leukocyte Esterase Negative Main/uL (NEGATIVE) 05/23/18 03:45 Attending/Attestation - Attestation I have personally seen and examined this patient.: Yes I have fully participated in the care of the patient.: Yes I have reviewed all pertinent clinical information, including history, physical exam and plan: Yes Notes (Text): 05/26/18 18:30 attending note; Patient seen and examined with resident. feeling much better Today. Denies any abdominal pain. Started on low residue diet. Patient was evaluated by GI attending this morning. Patient is an 82 year old male with a PMH of HTN, CAD s/p 2 stents, PAD s/p LE arterial stent, HLD who presents to the ED with one day h/o constant, tight lower abdominal pain. CT abdomen and pelvis revealed diffuse diverticulosis noted involving descending and sigmoid colon with minimal inflammatory stranding noted adjacent to the distal descending and proximal sigmoid colon compatible with mild acute diverticulitis. Patient admitted for diverticulitis. currently on IV Zosyn. Right upper quadrant pain; Abdominal ultrasound is negative for gallstones. GI evaluation with Dr. ashby appreciated. Patient with possible IBS. Continue Bentyl as needed. constipation; will start MiraLAX. Needs outpatient colonoscopy. upOn discharge the patient will follow-up with PMd Dr. Rosales. case discussed with PMD in detail. Complete course antibiotics and follow up with GI for colonoscopy in 1 week.
--- NOTE | 2018-05-26 14:58 | CP.PCM.PN ---
Subjective - Date & Time of Evaluation Date of Evaluation: 05/26/18 Time of Evaluation: 14:00 - Subjective Subjective: Infectious Disease Follow Up: May 26, 2018 82 yo male with PMHx of HTN, CAD s/p 2 stents, PAD s/p LE arterial stent, HLD who presents to the ED complaining of 10/10 constant, tight lower abdominal pain which started yesterday. The pain does not radiate. Pt denies travel, or eating anything new. Pt reports nausea, but denies vomiting, diarrhea, constipation, fever or chills. Pt denies blood in the stool. Pt denies recent sick contacts. Pt reports using Pepto Bismol which has been making his BM dark. Pt denies pain with urination or blood in the urine. CT scan showing mild segmental diverticulitis confined to sigmoid and adjacent descending colon. No collections, free air, or loculated air seen. Slight improvement to abdominal pain today. GI recommended advancing diet. The patient could not tolerate solid food two nights ago. Tolerated liquids. Objective - Vital Signs/Intake and Output Vital Signs (last 24 hours): Temp Pulse Resp BP Pulse Ox 97.7 F 65 20 159/95 H 95 05/26/18 06:00 05/26/18 10:36 05/26/18 06:00 05/26/18 10:36 05/26/18 06:00 Intake and Output: 05/26/18 05/26/18 06:59 18:59 Intake Total 3520 Output Total 800 Balance 2720 - Medications Medications: Current Medications Alprazolam (Xanax) 0.25 mg PO [facility]; Protocol Stop: 06/01/18 22:01 Last Admin: 05/25/18 21:15 Dose: 0.25 mg Amlodipine Besylate (Norvasc) 5 mg PO DAILY [facility] Last Admin: 05/26/18 10:35 Dose: 5 mg Aspirin (Ecotrin) 81 mg PO DAILY [facility] Last Admin: 05/26/18 10:35 Dose: 81 mg Dicyclomine HCl (Bentyl) 10 mg PO TID [facility] Last Admin: 05/26/18 10:35 Dose: 10 mg Docusate Sodium (Colace) 100 mg PO BID [facility] Last Admin: 05/26/18 10:35 Dose: 100 mg Home Med (Home Med) 1 unit PO DIN [facility] Last Admin: 05/25/18 18:21 Dose: 1 unit Hydralazine HCl (Apresoline) 10 mg IVP Q6 PRN PRN Reason: Systolic Blood Pressure Sodium Chloride (Sodium Chloride 0.45%) 1,000 mls @ 100 mls/hr IV .Q10H [facility] Last Admin: 05/25/18 18:21 Dose: 100 mls/hr Piperacillin Sod/Tazobactam Sod (Zosyn 3.375 In Ns 100ml) 100 mls @ 200 mls/hr IVPB Q6 [facility]; Protocol Last Admin: 05/26/18 12:02 Dose: 200 mls/hr Lisinopril (Zestril) 20 mg PO DAILY [facility] Last Admin: 05/26/18 10:35 Dose: 20 mg Metoprolol Tartrate (Lopressor) 50 mg PO BID [facility] Last Admin: 05/26/18 10:36 Dose: 50 mg Morphine Sulfate (Morphine) 1 mg IVP Q4H PRN PRN Reason: Pain, moderate (4-7) Last Admin: 05/25/18 01:25 Dose: 1 mg Pantoprazole Sodium (Protonix Inj) 40 mg IVP DAILY [facility] Last Admin: 05/26/18 10:36 Dose: 40 mg Polyethylene Glycol (Miralax) 17 gm PO TID [facility] Last Admin: 05/26/18 10:35 Dose: 17 gm - Labs Labs: 05/26/18 07:15 05/26/18 07:15 PT 12.3 SECONDS (9.4-12.5) 05/23/18 03:00 INR 1.07 05/23/18 03:00 APTT 26.9 Seconds (25.1-36.5) 05/23/18 03:00 - Constitutional Appears: Non-toxic, No Acute Distress, Chronically Ill - Head Exam Head Exam: ATRAUMATIC, NORMOCEPHALIC - Eye Exam Eye Exam: EOMI, PERRL Pupil Exam: NORMAL ACCOMODATION, PERRL - ENT Exam ENT Exam: Mucous Membranes Moist, Normal External Ear Exam, TM's Normal B ilaterally - Neck Exam Neck Exam: Full ROM, Normal Inspection - Respiratory Exam Respiratory Exam: Clear to Ausculation Bilateral, NORMAL BREATHING PATTERN. absent: Rales, Rhonchi, Wheezes - Cardiovascular Exam Cardiovascular Exam: REGULAR RHYTHM, RRR, +S1, +S2 - GI/Abdominal Exam GI & Abdominal Exam: Soft, Normal Bowel Sounds. absent: Distended, Tenderness - Extremities Exam Extremities Exam: Full ROM, Normal Inspection - Neurological Exam Neurological Exam: Alert, Awake, CN II-XII Intact, Oriented x3 - Psychiatric Exam Psychiatric exam: Normal Affect, Normal Mood - Skin Skin Exam: Intact, Normal Color Assessment and Plan - Assessment and Plan (Free Text) Assessment: 82 yo male with PMH of HTN, CAD s/p 2 stents, PAD s/p LE arterial stent, HLD who presents to the ED complaining of 10/10 constant, tight lower abdominal pain which started yesterday. CT scan showing mild segmental diverticulitis with perforation, collections, or free air. Patient started on Zosyn for antibiotic therapy. Can continue on Zosyn for the time being for antibiotic coverage while in hospital. Noted that the patient was unable to tolerate dinner two nights ago developing bloating and abdominal pain. Tolerated liquids. Supportive care. Would consider use of Keflex 500 mg TID and Flagyl 500 mg TID for 10 days more of treatment when ready for discharge. Thank you for allowing me to participate in the care of the patient, we will follow with you.
== END 2018-05-26 14:49 | disposition home or self-care (01) | DRG 392 ==
LOC: ED 02:01 → ERH 05:16 → 3RSO 07:24
PROVIDERS: ADMIT Internal Medicine; ATTEND Internal Medicine
DX: K57.32 Diverticulitis of large intestine without perforation or abscess without bleeding (principal); I25.10 Atherosclerotic heart disease of native coronary artery without angina pectoris; I10 Essential (primary) hypertension; K52.9 Noninfective gastroenteritis and colitis, unspecified; I73.9 Peripheral vascular disease, unspecified; E78.5 Hyperlipidemia, unspecified; K59.00 Constipation, unspecified; G89.29 Other chronic pain; K29.70 Gastritis, unspecified, without bleeding; K21.0 Gastro-esophageal reflux disease with esophagitis; Z87.891 Personal history of nicotine dependence; Z95.5 Presence of coronary angioplasty implant and graft